=== PATIENT | female | born 1960 | race Caucasian/White ===

== ENCOUNTER → 2017-04-14 | Outpatient (CLI) | payer BC ==
[2017-04-14 16:55] LABS: Follicle Stimulating Hormone 37.4 mIU/mL
== END | disposition home or self-care (01) ==
LOC: LABWHC1 15:54
PROVIDERS: ATTEND Obstetrics & Gynecology
DX: R45.4 Irritability and anger (principal); R61 Generalized hyperhidrosis; R53.83 Other fatigue; N95.2 Postmenopausal atrophic vaginitis; E55.9 Vitamin D deficiency, unspecified; R41.3 Other amnesia; N95.1 Menopausal and female climacteric states
CPT/HCPCS: 36415; 82670; 83001; 84403

== ENCOUNTER → 2017-08-23 | Outpatient (CLI) | payer SELFPAY ==
--- NOTE | 2017-08-23 11:10 | MM ---
Reason for exam: clinical finding. Last mammogram was performed 1 year and 1 month ago. History: Patient is postmenopausal. Family history of breast cancer in mother at age 58. Retro-pectoral silicone gel implants in both breasts, 2014. Benign excisional biopsy of the right breast, 2005. Saline implants in both breasts, 1992. Taking progesterone for 6 months beginning at age 57. Indicated problem(s): non-bloody discharge in the left breast. Physical Findings: Nurse did not find any significant physical abnormalities on exam. MG 3D Diag Mammo Imp W/Cad MC Bilateral CC and MLO view(s) were taken. Prior study comparison: July 26, 2016, bilateral MG 3d screen mammo imp/cad. July 17, 2015, bilateral MG screening mammo implant/CAD. April 22, 2014, bilateral MG diagnostic mammo w CAD MC. The breast tissue is heterogeneously dense. This may lower the sensitivity of mammography. Finding: There are typically benign round calcifications in both breasts. There is no discrete abnormality. Intact subpectoral implants x 2. These results were verbally communicated with the patient and result sheet given to the patient on 08/23/17. ASSESSMENT: Incomplete: need additional imaging evaluation, BI-RAD 0 RECOMMENDATION: Ultrasound of the left breast. (subareolar due to nipple discharge)
--- NOTE | 2017-08-23 11:13 | USB ---
Reason for exam: additional evaluation requested from abnormal screening. History: Patient is postmenopausal. Family history of breast cancer in mother at age 58. Retro-pectoral silicone gel implants in both breasts, 2014. Benign excisional biopsy of the right breast, 2005. Saline implants in both breasts, 1992. Taking progesterone for 6 months beginning at age 57. US Breast Limited LT Left breast ultrasound demonstrates a 0.3 x 0.2 x 0.3cm oval lesion too small to characterize at 9 o'clock calcifications posterior shadow, a 0.4 x 0.3 x 0.2cm oval lesion too small to characterize at 10 o'clock and a 0.6 x 0.6 x 0.3cm oval, cystic lesion at the subareolar position. These results were verbally communicated with the patient and result sheet given to the patient on 08/23/17. ASSESSMENT: Probably benign, BI-RAD 3 RECOMMENDATION: Surgical consultation of the left breast. Manage on a clinical basis with regard to left nipple discharge. Ultrasound of the left breast in 6 months.
== END ==
LOC: RADMAMWWP 09:10
PROVIDERS: ATTEND Obstetrics & Gynecology
DX: N64.52 Nipple discharge (principal); R92.8 Other abnormal and inconclusive findings on diagnostic imaging of breast
CPT/HCPCS: 76642; G0204; G0279

== ENCOUNTER → 2017-09-02 | Outpatient (CLI) | payer BC ==
[2017-09-02 18:36] LABS: Non-African American GFR(MDRD) >60 (>60 ml/min/1.73 sqM)
--- NOTE | 2017-09-09 15:12 | BMR ---
EXAMINATION TYPE: MR breast BILAT wo/w con DATE OF EXAM: 09/02/2017 COMPARISON: 08/23/2017 HISTORY: Left nipple discharge. Family history is significant for a mother diagnosed with breast canc er at age 58. Patient is postmenopausal. Personal history of retropectoral silicone gel implants in b oth breasts placement 2014. Prior benign excisional biopsy in the right breast in 2005. TECHNIQUE: A series of fat and water weighted images in the long and short axis views of both breasts are obtained in conjunction with dynamic contrast MRI with subtraction technique. The patient was i njected with 6.5 mL intravenous Gadavist gadolinium contrast. Three-dimensional and additional post processing imaging is created on independent workstation and reviewed during official interpretation of this study. COMPARISON: Targeted left breast ultrasound and diagnostic bilateral 3-D mammogram dated 08/23/2017 FINDINGS: There is symmetric minimal background parenchymal enhancement and breasts are composed of heterogenou s fibroglandular tissue. Bilateral retropectoral silicone implants are present. Radial folds are seen bilaterally. No evidence of intracapsular or extracapsular rupture. Asymmetric left nipple and retroareolar enhancement is seen with washout kinetics. Although this enha ncement may be physiologic due to the rich blood supply of the nipple areolar complex neoplasm is pos sible. No suspicious areas of mass or nonmass enhancement are seen within the right breast. No internal mamm kyle, intramammary, or axillary lymphadenopathy is appreciated bilaterally. The previously seen too small to characterize 0.3 x 0.2 x 0.3 cm mass at the 9:00 position in the lef t breast as well as a 0.4 x 0.3 x 0.2 cm mass at the 10:00 position in the left breast in the subareo lar 0.6 x 0.6 x 0.3 cm cyst do not demonstrate suspicious enhancement. IMPRESSION: BI-RADS 2-No MRI evidence of malignancy. 1. Asymmetric left nipple enhancement and periareolar skin enhancement with no abnormal breast tissue enhancement. This finding is typically physiologic although the differential includes Paget's diseas e, skin infectious etiology or skin inflammatory etiology. There is no apparent skin thickening on MR . If there are skin changes punched biopsy should be considered. 2. No suspicious enhancement of the previously seen 0.3 cm mass and 0.6 cm cyst at the 9:00 and 10:00 positions respectively within the left breast. Six-month follow-up ultrasound remains a recommendati on for the 0.3 cm mass at the 10:00 position. 3. No suspicious mass or nonmass enhancement in the right breast. 4. No evidence of internal mammary, intramammary or axillary adenopathy bilaterally. 5. No evidence of intracapsular or extracapsular implant rupture.
== END | disposition home or self-care (01) ==
LOC: RADMRIMAIN 18:01
PROVIDERS: ATTEND Surgery
DX: N64.89 Other specified disorders of breast (principal); N64.52 Nipple discharge
CPT/HCPCS: 82565; 77059; 0159T; A9581

== ENCOUNTER → 2018-03-06 | Outpatient (CLI) | payer BC ==
--- NOTE | 2018-03-07 08:32 | USB ---
Reason for exam: follow-up at short interval from prior study. History: Patient is postmenopausal. Family history of breast cancer in mother at age 58. Retro-pectoral silicone gel implants in both breasts, 2014. Benign excisional biopsy of the right breast, 2005. Saline implants in both breasts, 1992. Taking progesterone for 6 months beginning at age 57. US Breast LT Left breast ultrasound includes all four quadrants, the retroareolar region and axilla. Finding demonstrates a 0.6 x 0.4 x 0.3cm mixed, hypoechoic lesion at 1 o'clock thought to be present on mammogram back to 2013 however 6 month follow up recommended as not cystic and not imaged previously with ultrasound, a 0.9 x 0.7 x 0.3cm cystic lesion at 1 o'clock, a 0.4 x 0.3 x 0.3cm mixed, hypoechoic lesion at 6 o'clock not previously sonographically imaged, 6 month follow up recommended, a 0.2 x 0.3 x 0.3cm calcification at 9 o'clock, a 0.4 x 0.3 x 0.2cm cystic lesion with septation at 10 o'clock and a 0.6 x 0.6 x 0.3cm cystic lesion at the posterior nipple. These results were verbally communicated with the patient and result sheet given to the patient on 03/06/18. ASSESSMENT: Probably benign, BI-RAD 3 RECOMMENDATION: Ultrasound of the left breast. (attention 1 o'clock and 6 o'clock positions) Due for mammogram at that time. Follow-up diagnostic mammogram of both breasts in 6 months. Back on schedule for August 2018.
== END | disposition home or self-care (01) ==
LOC: RADUSWWP 10:14
PROVIDERS: ATTEND Surgery
DX: R92.8 Other abnormal and inconclusive findings on diagnostic imaging of breast (principal)

== ENCOUNTER → 2018-09-05 | Outpatient (CLI) | payer BC ==
--- NOTE | 2018-09-05 12:17 | MM ---
Reason for exam: additional evaluation requested from prior study. Last mammogram was performed 1 year ago. History: Patient is postmenopausal. Family history of breast cancer in mother at age 58. Retro-pectoral silicone gel implants in both breasts, 2014. Benign excisional biopsy of the right breast, 2005. Saline implants in both breasts, 1992. Taking progesterone for 6 months beginning at age 57. Physical Findings: Nurse Summary:less than 1cm nodule in the left breast at 5 o'clock (nurse rm). MG 3D Diag Mammo Imp W/Cad MC Bilateral CC, MLO, and ID view(s) were taken. Prior study comparison: August 23, 2017, bilateral MG 3d diag mammo imp w/cad MC. July 26, 2016, bilateral MG 3d screen mammo imp/cad. The breast tissue is extremely dense which could obscure a lesion on mammography. Benign appearing bilateral calcifications. Bilateral intramammary lymph nodes. These results were verbally communicated with the patient and result sheet given to the patient on 09/05/18. ASSESSMENT: Benign, BI-RAD 2 RECOMMENDATION: Routine screening mammogram of both breasts in 1 year.
--- NOTE | 2018-09-05 12:48 | BD ---
EXAMINATION TYPE: Axial Bone Density DATE OF EXAM: 09/05/2018 COMPARISON: NONE CLINICAL HISTORY: Postmenopausal female. Osteoporosis screening. Height: 5 FT 4 1/2 IN Weight: 136 FRAX RISK QUESTIONS: History of Fracture in Adulthood: YES Secondary Osteoporosis: RISK FACTORS HISTORY OF: Family History of Osteoporosis: YES Active: YES Postmenopausal woman: AGE 51 MEDICATIONS: Additional Medications: ALTACE, Additional History: EXAM MEASUREMENTS: Bone mineral densitometry was performed using the [employer] System. Bone mineral density as measured about the Lumbar spine is: ----- L1-L4(G/cm2): 1.359 T Score Values are as follows: ----- L2: 1.2 ----- L3: 1.8 ----- L4: 1.7 ----- L1-L4: 1.5 BASELINE Bone mineral density about the R hip (g/cm2): 1.089 Bone mineral density about the L hip (g/cm2): 1.017 T Score values are as follows: -----R Neck: 0.4 -----L Neck: -0.2 -----R Total: 0.0 -----L Total: 0.0 BASELINE IMPRESSION: Normal (Values between +1 and -1 indicate normal bone mass). Consider repeating this study in 5 year s or sooner if there is some new clinical indication. NOTE: T-SCORE=SD OF THE YOUNG ADULT MEAN.
--- NOTE | 2018-09-05 13:09 | USB ---
Reason for exam: follow-up at short interval from prior study. History: Patient is postmenopausal. Family history of breast cancer in mother at age 58. Retro-pectoral silicone gel implants in both breasts, 2014. Benign excisional biopsy of the right breast, 2005. Saline implants in both breasts, 1992. Taking progesterone for 6 months beginning at age 57. US Breast LT Left complete breast ultrasound includes all four quadrants, the retroareolar region and axilla. Finding demonstrates a 0.3 x 0.1 x 0.4cm oval, cystic, benign lesion at 1 o'clock, a 0.8 x 0.3 x 0.6cm mixed lesion at 1 o'clock previously 0.6 x 0.3 x 0.4cm for which a biopsy is recommended, a 0.7 x 0.2 x 0.5cm possible cystic cluster, mixed lesion at 2 o'clock previously 0.9 x 0.3 x 0.7cm, a 0.6 x 0.2 x 0.4cm hypoechoic lesion at 2 o'clock, a 0.7 x 0.3 x 0.5cm mixed lesion at 2 o'clock, a 0.5 x 0.3 x 0.4cm possibly cystic cluster, mixed lesion at 6 o'clock, a0.3 x 0.2 x 0.4cm mixed lesion at 10 o'clock and a 0.5 x 0.3 x 0.6cm cystic benign lesion at the posterior nipple. These results were verbally communicated with the patient and result sheet given to the patient on 09/05/18. ASSESSMENT: Suspicious, BI-RAD 4 RECOMMENDATION: Ultrasound core biopsy of the left breast. (recommendation of similar masses to be made after biopsy of the 1 o'clock mass) Called with mammographic findings and has scheduled an appointment for the patient for 09/21/18 at 9:[address] Leach. Biopsy scheduled for 09/14/18 at 12:20. PRELIMINARY REPORT CALLED AND FAXED TO DR. LEACH ON 09/05/18.
== END | disposition home or self-care (01) ==
LOC: RADMAMWWP 08:00
PROVIDERS: ATTEND Surgery
DX: R92.8 Other abnormal and inconclusive findings on diagnostic imaging of breast (principal); Z78.0 Asymptomatic menopausal state
CPT/HCPCS: 77062; 77066; 77080

== ENCOUNTER → 2018-09-14 | Day surgery (SDC) | payer BC ==
[2018-09-14 12:14] VITALS: RESP 16; BMI 21.9
[2018-09-14 13:20] VITALS: BP 152/85; PULSE 76; TEMP 97.9
--- NOTE | 2018-09-14 13:55 | USB ---
EXAMINATION TYPE: US biopsy breast VAD LT DATE OF EXAM: 09/14/2018 CLINICAL HISTORY: R92.8 Abnormal mammogram. TECHNIQUE: Ultrasound guided core biopsy of left breast. COMPARISON: Ultrasound 09/05/2018 Maximal barrier technique is utilized. Ultrasound was used to sterile technique. The skin overlying the lesion at the 1:00 position of the left breast was localized with ultrasound and the overlying skin prepped and draped. Lidocaine used for local anesthesia and hydrodissection and a skin sara made with a scalpel. 2 passes with an 18-gauge needle were made into the level of the mass and core specimens obtained. Following the procedure hemostasis achieved. No immediate complication. Patient remained in stable condition. IMPRESSION: Status post ultrasound guided core biopsy of left breast lesion as described. Specimen submitted to pathology. This procedure performed by the undersigned. Follow-up left breast ultrasound recommended in 6 months. Pathology Results: Inadequate Specimen LEFT BREAST, NEEDLE CORE BIOPSIES: Dense fibrous and adipose tissue with prominent vessels suggestive of scar. Non-atypical epithelial cells consistent with duct epithelium. Suboptimal for diagnosis due to low cellularity. Recommendation Given the location, consider 3 month follow up ultrasound as alternative to rebiopsy or open biopsy. EDDIED
== END ==
LOC: RADUSWWP 11:18
PROVIDERS: ATTEND Surgery
DX: R92.8 Other abnormal and inconclusive findings on diagnostic imaging of breast (principal)
CPT/HCPCS: 88305; 19083; J2001

== ENCOUNTER → 2018-09-19 | Outpatient (CLI) | payer BC ==
[2018-09-19 08:41] LABS: Basophils % (A) 0 %; Eosinophils # (A) 0.1 k/uL (0-0.7); Eosinophils % (A) 3 %; HCT 41.9 % (34.0-46.0); HGB 13.6 gm/dL (11.4-16.0); Lymphocytes % (A) 27 %; MCH 27.5 pg (25.0-35.0); MCHC 32.5 g/dL (31.0-37.0); MCV 84.6 fL (80.0-100.0); Mean Platelet Volume 6.5; Monocytes # (A) 0.2 k/uL (0-1.0); Monocytes % (A) 5 %; Neutrophils # (A) 2.3 k/uL (1.3-7.7); Neutrophils % (A) 64 %; Platelet Count 292 k/uL (150-450); RBC 4.95 m/uL (3.80-5.40); RDW 12.6 % (11.5-15.5); WBC 3.7 k/uL (3.8-10.6)
[2018-09-19 18:18] LABS: Albumin 4.6 g/dL (3.80-4.90); Albumin/Globulin Ratio 2.3 (1.20-2.10); Anion Gap 9.7 mmol/L (4.00-12.00); Calcium 9.4 mg/dL (8.7-10.3); Carbon Dioxide 25.3 mmol/L (21.6-31.8); LDL Cholesterol,Calculated 139.8 mg/dL (0.0-131.0); Potassium 4.8 mmol/L (3.5-5.5); Total Bilirubin 0.6 mg/dL (0.3-1.2); Total Protein 6.6 g/dL (6.2-8.2); VLDL Calculation 22.2 mg/dL (5.00-40.00)
== END | disposition home or self-care (01) ==
LOC: LABWHC1 07:34
PROVIDERS: ATTEND Family Medicine
DX: I10 Essential (primary) hypertension (principal); Z11.59 Encounter for screening for other viral diseases
CPT/HCPCS: 36415; 80053; 80061; 84443; 85025; 86803

== ENCOUNTER 2018-11-01 11:30 | Day surgery (SDC) | payer BC ==
[2018-10-27 15:08] VITALS: BMI 21.7
[~2018-11-01 11:30] MED LIST: DEXAMETHASONE SOD PHOSPHATE 10 MG/ML 1 ML VIAL IV ONE; HYDROmorphone 0.5 MG/0.5 ML SYRINGE IVP PRN; LACTATED RINGERS 1,000 ML IV SCH; LIDOCAINE 1% 20 ML VIAL (10MG/ML) FOR IV START INTRADERMA PRN; ONDANSETRON 4 MG/2 ML VIAL IVP ONE; SCOPOLAMINE 1.5MG/72HR PATCH TRANSDERM ONE
[2018-11-01 11:48] VITALS: RESP 16; TEMP 98.6
[2018-11-01] MEDS ORDERED: LIDOCAINE 1% INJ 10MG/ML (20 ML MDV) ONE (12:26)
[2018-11-01] MEDS ORDERED: PROPOFOL 10 MG/ML 20 ML VIAL IV ONE (12:26)
--- NOTE | 2018-11-01 12:55 | P.PCN ---
Date of Procedure: 11/01/18 Procedure(s) Performed: PREOPERATIVE DIAGNOSIS: Colon cancer screening POSTOPERATIVE DIAGNOSIS: Small sigmoid polyp, diverticulosis, tortuous colon PROCEDURE: Colonoscopy with snare polypectomy ANESTHESIA: MAC SURGEON: Carlos Leach M.D. SPECIMENS: Sigmoid polyp ENDOSCOPIC PROCEDURE: The patient was placed on the endoscopy table in the left decubitus position. The Olympus colonoscope was inserted into the anus and passed under direct visualization to the base of the cecum. The appendiceal orifice was visualized. From that point the scope was slowly withdrawn inspecting all surfaces carefully. There were no neoplastic inflammatory or polypoid lesions throughout the cecum, ascending, transverse, and descending colon. In the sigmoid there was a small polyp that was removed using the snare with cautery technique. The remainder of the sigmoid and rectum appeared normal. There was significant tortuosity throughout the colon. There was mild ascites diverticulosis. Digital rectal examination was normal. The patient was taken to the recovery room in stable condition per anesthesia guidelines. RECOMMENDATIONS: Await biopsy results. Anticipate follow-up colonoscopy 5-10 years.
[2018-11-01 13:25] VITALS: BP 134/85; PULSE 60
== END 2018-11-01 13:54 | disposition home or self-care (01) ==
LOC: ORWHC2ENDO 11:30
PROVIDERS: ATTEND Surgery
DX: Z12.11 Encounter for screening for malignant neoplasm of colon (principal); K63.5 Polyp of colon; K57.30 Diverticulosis of large intestine without perforation or abscess without bleeding; Q43.8 Other specified congenital malformations of intestine; I10 Essential (primary) hypertension; Z79.899 Other long term (current) drug therapy; Z88.2 Allergy status to sulfonamides
CPT/HCPCS: 88305; 45385; J2001; J2704

== ENCOUNTER 2018-11-12 07:59 | Inpatient (IN) | payer BC ==
[2018-11-12] MEDS ORDERED: SODIUM CHLORIDE 0.9% 2,000 ML IV STA (08:05)
[2018-11-12] MEDS ORDERED: ONDANSETRON 4 MG/2 ML VIAL IVP STA (08:05)
[2018-11-12] MEDS ORDERED: KETOROLAC 30 MG/ML 1 ML VIAL IVP STA (08:05)
[2018-11-12] MEDS ORDERED: ACETAMINOPHEN TAB 500 MG TAB PO STA (08:12)
[2018-11-12] MEDS ORDERED: cefTRIAXone 2,000 MG in SODIUM CHLORIDE 0.9% 100 ML IVPB STA (08:15)
--- NOTE | 2018-11-12 08:25 | ED ---
Abdominal Pain HPI - General Chief Complaint: Abdominal Pain Stated Complaint: Fever, Abd Pain Time Seen by Provider: 11/12/18 08:04 Source: patient, RN notes reviewed, old records reviewed Mode of arrival: ambulatory Limitations: no limitations - History of Present Illness Initial Comments: Patient is a 58-year-old female who presents emergency room today with chief complaint of bilateral flank pain times one day. Patient reports that she was diagnosed with a urinary tract infection yesterday in urgent care clinic. She was started on Macrobid. She's had 2 doses of the antibiotic. Patient reports that she has had a fever 103 today. Patient states that she's had a history of left-sided hydronephrosis. Which had have corrective surgery. She states that she follows with Dr. Hernandez. Patient denies any vomiting but does feel nauseated. She has had normal stools. She had Tylenol last night. - Related Data Home Medications Medication Instructions Recorded Confirmed Ramipril [Altace] 20 mg PO DAILY 10/27/18 11/12/18 Aspirin EC [Ecotrin] 650 mg PO DAILY PRN 11/12/18 11/12/18 Nitrofurantoin Macrocrystal 100 mg PO Q12H 11/12/18 11/12/18 [Macrodantin] Allergies Allergy/AdvReac Type Severity Reaction Status Date / Time Sulfa (Sulfonamide Allergy Rash/Hives Verified 11/12/18 08:32 Antibiotics) Review of Systems ROS Statement: Those systems with pertinent positive or pertinent negative responses have been documented in the HPI. ROS Other: All systems not noted in ROS Statement are negative. 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 History of Any Multi-Drug Resistant Organisms: None Reported Past Surgical History: Tubal Ligation Additional Past Surgical History / Comment(s): REPAIR LEFT BLOCKED URETER, colonoscopy Past Anesthesia/Blood Transfusion Reactions: Postoperative Nausea & Vomiting ( PONV) Past Psychological History: No Psychological Hx Reported Smoking Status: Never smoker Past Alcohol Use History: Occasional Past Drug Use History: None Reported - Past Family History Mother Family Medical History: Cancer Father Family Medical History: AFIB General Exam - General Exam Comments Initial Comments: 4-year-old female. Alert and oriented. Patient appears in no acute distress. Limitations: no limitations General appearance: alert, in no apparent distress Head exam: Present: atraumatic, normocephalic, normal inspection Eye exam: Present: normal appearance, PERRL, EOMI. Absent: scleral icterus, conjunctival injection, periorbital swelling ENT exam: Present: normal exam, mucous membranes moist Neck exam: Present: normal inspection. Absent: tenderness, meningismus, lymphadenopathy Respiratory exam: Present: normal lung sounds bilaterally. Absent: respiratory distress, wheezes, rales, rhonchi, stridor Cardiovascular Exam: Present: regular rate, normal rhythm, normal heart sounds. Absent: systolic murmur, diastolic murmur, rubs, gallop, clicks GI/Abdominal exam: Present: soft, tenderness (Bilateral CVA tenderness), normal bowel sounds. Absent: distended, guarding, rebound, rigid Extremities exam: Present: normal inspection, full ROM, normal capillary refill. Absent: tenderness, pedal edema, joint swelling, calf tenderness Back exam: Present: normal inspection Neurological exam: Present: alert, oriented X3, CN II-XII intact Psychiatric exam: Present: normal affect, normal mood Skin exam: Present: warm, dry, intact, normal color. Absent: rash Course Vital Signs 11/12/18 07:59 Temperature 99.8 F H Pulse Rate 116 H Respiratory 16 Rate Blood Pressure 145/86 O2 Sat by Pulse 95 Oximetry - Reevaluation(s) Reevaluation #1: 11/12/18 11:39 Patient is reevaluated this time. Blood pressure was taken was 90/40. She is guarding received 2 L of fluid. She does have a history of high blood pressure and has not taken her blood pressure medication. Medical Decision Making - Medical Decision Making Patient is a 4-year-old female who presents today with she went to fevers, left- sided flank pain. Patient reports she went to urgent care yesterday and was sinus with a urinary tract infection. She started one day of Macrobid. She recommends from today complains of fevers and fatigue. She states she had fever 103 at home. Temperature was 99.7 here. She was given Tylenol, 2 L of fluids. She started 2 g of Rocephin. She was given Toradol for pain. She had some left-sided CVA tenderness. Patient does report a history of hydronephrosis over the left kidney after she had a blockage. She had surgery by Dr. Kasey larose. Years ago for this. Patient was reevaluated. Blood pressure was low at 90s over 56. Patient has had history of hypertension but did not take her blood pressure meds today. This was after 2 L bolus. I discussed case with Dr. piedra, whom discussed with Dr. Chavarria.. Her concern the Patient may have a worsening infection causing the low blood pressure. Patient will be admitted at this time for continued monitoring. - Lab Data Result diagrams: 11/12/18 08:40 11/12/18 08:40 Lab Results 11/12/18 11/12/18 11/12/18 Range/Units 08:40 08:40 08:40 WBC 5.1 (3.8-10.6) k/uL RBC 5.14 (3.80-5.40) m/uL Hgb 14.5 (11.4-16.0) gm/dL Hct 43.0 (34.0-46.0) % MCV 83.5 (80.0-100.0) fL MCH 28.3 (25.0-35.0) pg MCHC 33.8 (31.0-37.0) g/dL RDW 13.3 (11.5-15.5) % Plt Count 183 (150-450) k/uL Neutrophils % 94 % Lymphocytes % 2 % Monocytes % 3 % Eosinophils % 1 % Basophils % 0 % Neutrophils # 4.8 (1.3-7.7) k/uL Lymphocytes # 0.1 L (1.0-4.8) k/uL Monocytes # 0.1 (0-1.0) k/uL Eosinophils # 0.1 (0-0.7) k/uL Basophils # 0.0 (0-0.2) k/uL PT (9.0-12.0) sec INR (<1.2) APTT (22.0-30.0) sec Sodium 139 (137-145) mmol/L Potassium 3.9 (3.5-5.1) mmol/L Chloride 106 (98-107) mmol/L Carbon Dioxide 26 (22-30) mmol/L Anion Gap 7 mmol/L BUN 19 H (7-17) mg/dL Creatinine 1.13 H (0.52-1.04) mg/dL Est GFR (CKD-EPI)AfAm 61 (>60 ml/min/1.73 sqM) Est GFR (CKD-EPI)NonAf 53 (>60 ml/min/1.73 sqM) Glucose 105 H (74-99) mg/dL Plasma Lactic Acid Andre 1.2 (0.7-2.0) mmol/L Calcium 9.4 (8.4-10.2) mg/dL Total Bilirubin 0.4 (0.2-1.3) mg/dL AST 27 (14-36) U/L ALT 31 (9-52) U/L Alkaline Phosphatase 48 (38-126) U/L Total Protein 7.1 (6.3-8.2) g/dL Albumin 4.3 (3.5-5.0) g/dL Amylase 68 (30-110) U/L Lipase 185 (23-300) U/L Urine Color Urine Appearance (Clear) Urine pH (5.0-8.0) Ur Specific [place] (1.001-1.035) Urine Protein (Negative) Urine Glucose (UA) (Negative) Urine Ketones (Negative) Urine Blood (Negative) Urine Nitrite (Negative) Urine Bilirubin (Negative) Urine Urobilinogen (<2.0) mg/dL Ur Leukocyte Esterase (Negative) Urine RBC (0-5) /hpf Urine WBC (0-5) /hpf Ur Squamous Epith Cells (0-4) /hpf Urine Bacteria (None) /hpf Urine Mucus (None) /hpf 11/12/18 11/12/18 Range/Units 08:40 10:11 WBC (3.8-10.6) k/uL RBC (3.80-5.40) m/uL Hgb (11.4-16.0) gm/dL Hct (34.0-46.0) % MCV (80.0-100.0) fL MCH (25.0-35.0) pg MCHC (31.0-37.0) g/dL RDW (11.5-15.5) % Plt Count (150-450) k/uL Neutrophils % % Lymphocytes % % Monocytes % % Eosinophils % % Basophils % % Neutrophils # (1.3-7.7) k/uL Lymphocytes # (1.0-4.8) k/uL Monocytes # (0-1.0) k/uL Eosinophils # (0-0.7) k/uL Basophils # (0-0.2) k/uL PT 10.2 (9.0-12.0) sec INR 0.9 (<1.2) APTT 23.6 (22.0-30.0) sec Sodium (137-145) mmol/L Potassium (3.5-5.1) mmol/L Chloride (98-107) mmol/L Carbon Dioxide (22-30) mmol/L Anion Gap mmol/L BUN (7-17) mg/dL Creatinine (0.52-1.04) mg/dL Est GFR (CKD-EPI)AfAm (>60 ml/min/1.73 sqM) Est GFR (CKD-EPI)NonAf (>60 ml/min/1.73 sqM) Glucose (74-99) mg/dL Plasma Lactic Acid Andre (0.7-2.0) mmol/L Calcium (8.4-10.2) mg/dL Total Bilirubin (0.2-1.3) mg/dL AST (14-36) U/L ALT (9-52) U/L Alkaline Phosphatase (38-126) U/L Total Protein (6.3-8.2) g/dL Albumin (3.5-5.0) g/dL Amylase (30-110) U/L Lipase (23-300) U/L Urine Color Yellow Urine Appearance Clear (Clear) Urine pH 5.5 (5.0-8.0) Ur Specific [place] 1.012 (1.001-1.035) Urine Protein Trace H (Negative) Urine Glucose (UA) Negative (Negative) Urine Ketones Trace H (Negative) Urine Blood Trace H (Negative) Urine Nitrite Negative (Negative) Urine Bilirubin Negative (Negative) Urine Urobilinogen <2.0 (<2.0) mg/dL Ur Leukocyte Esterase Small H (Negative) Urine RBC 3 (0-5) /hpf Urine WBC 4 (0-5) /hpf Ur Squamous Epith Cells 3 (0-4) /hpf Urine Bacteria Rare H (None) /hpf Urine Mucus Rare H (None) /hpf - Radiology Data Radiology results: report reviewed Patient states ultrasound reveals a bladder showed left-sided hydronephrosis. Disposition Clinical Impression: Acute pyelonephritis Disposition: ADMITTED IP TO THIS HOSP Condition: Stable Is patient prescribed a controlled substance at d/c from ED?: No Referrals: Paula Ramirez MD [Primary Care Provider] - 1-2 days Time of Disposition: 12:18
[2018-11-12] MEDS: SODIUM CHLORIDE 0.9% 1,000 ML IV STA ×2 (08:27→17:52)
[2018-11-12 09:26] LABS: INR 0.9 (<1.2); Partial Thromboplastin Time 23.6 sec (22.0-30.0); Prothrombin Time 10.2 sec (9.0-12.0)
--- NOTE | 2018-11-12 09:34 | US ---
EXAMINATION TYPE: US kidneys/renal and bladder DATE OF EXAM: 11/12/2018 COMPARISON: CT CLINICAL HISTORY: Pain. Pt states bilat flank pain, H/O renal stones, recent UTI EXAM MEASUREMENTS: Right Kidney: 10.8 x 4.8 x 4.8 cm Left Kidney: 10.9 x 4.6 x 4.8 cm Right Kidney: wnl Left Kidney: Dilated renal pelvis= 3.7 cm with mild hydro Bladder: wnl Bilateral Jets seen: No There is no evidence for hydronephrosis at this point in time. No nephrolithiasis is seen. No ene s are identified. The urinary bladder is anechoic. Bilateral ureteral jets are seen. IMPRESSION: Left-sided hydronephrosis.
[2018-11-12 09:35] LABS: Basophils % (A) 0 %; Eosinophils # (A) 0.1 k/uL (0-0.7); Eosinophils % (A) 1 %; HGB 14.5 gm/dL (11.4-16.0); Lymphocytes # (A) 0.1 k/uL (1.0-4.8); Lymphocytes % (A) 2 %; MCH 28.3 pg (25.0-35.0); MCHC 33.8 g/dL (31.0-37.0); MCV 83.5 fL (80.0-100.0); Mean Platelet Volume 6.9; Monocytes # (A) 0.1 k/uL (0-1.0); Monocytes % (A) 3 %; Neutrophils # (A) 4.8 k/uL (1.3-7.7); Neutrophils % (A) 94 %; Platelet Count 183 k/uL (150-450); RBC 5.14 m/uL (3.80-5.40); RDW 13.3 % (11.5-15.5); WBC 5.1 k/uL (3.8-10.6)
[2018-11-12 09:39] LABS: Albumin 4.3 g/dL (3.5-5.0); Calcium 9.4 mg/dL (8.4-10.2); Potassium 3.9 mmol/L (3.5-5.1); Total Bilirubin 0.4 mg/dL (0.2-1.3); Total Protein 7.1 g/dL (6.3-8.2)
[2018-11-12 10:41] LABS: Appearance,Urine Clear (Clear); Bacteria,Urine Rare /hpf; Bilirubin,Urine Negative (Negative); Blood,Urine Trace (Negative); Color,Urine Yellow; Glucose,Urine (UA) Negative (Negative); Ketones,Urine Trace (Negative); Leukocyte Esterase,Urine Small (Negative); Mucus,Urine Rare /hpf; Nitrite,Urine Negative (Negative); PH, Urine 5.5 (5.0-8.0); Protein,Urine Trace (Negative); RBC,Urine 3 /hpf (0-5); Specific Gravity,Urine 1.012 (1.001-1.035); Squamous Epithelial Cell,Urine 3 /hpf (0-4); Urobilinogen,Urine <2.0 mg/dL (<2.0)
[2018-11-12] MEDS ORDERED: IBUPROFEN 400 MG TAB PO PRN (12:20)
[2018-11-12] MEDS ORDERED: KETOROLAC 30 MG/ML 1 ML VIAL IVP PRN (12:20)
[2018-11-12] MEDS ORDERED: oxyCODONE-APAP 5-325MG 1 EACH TAB PO PRN (12:20)
[2018-11-12] MEDS ORDERED: ONDANSETRON 4 MG/2 ML VIAL IVP PRN (12:20)
[2018-11-12] MEDS ORDERED: NALOXONE 0.4 MG/ML 1 ML VIAL IV PRN (12:20)
[2018-11-12 17:55] VITALS: BMI 21.9
[2018-11-12] MEDS ORDERED: ASPIRIN 325 MG TAB PO PRN (18:03)
[2018-11-12] MEDS ORDERED: TEMAZEPAM 15 MG CAP PO PRN (18:03)
[2018-11-12] MEDS ORDERED: ALPRAZolam 0.25 MG TAB PO PRN (18:03)
[2018-11-12] MEDS: SODIUM CHLORIDE 0.9% 1,000 ML IV SCH (18:24)
[2018-11-12] MEDS: ACETAMINOPHEN TAB 325 MG TAB PO PRN (22:20)
[2018-11-12] MEDS: HEPARIN SODIUM,PORCINE 5,000 UNIT/ML 1 ML VIAL SQ SCH (22:20)
[2018-11-13 07:14] LABS: Basophils % (A) 0 %; Eosinophils # (A) 0.1 k/uL (0-0.7); Eosinophils % (A) 4 %; HCT 34.4 % (34.0-46.0); Lymphocytes # (A) 0.4 k/uL (1.0-4.8); Lymphocytes % (A) 19 %; MCH 28.7 pg (25.0-35.0); MCHC 33.2 g/dL (31.0-37.0); MCV 86.3 fL (80.0-100.0); Mean Platelet Volume 6.9; Monocytes # (A) 0.1 k/uL (0-1.0); Monocytes % (A) 5 %; Neutrophils # (A) 1.3 k/uL (1.3-7.7); Neutrophils % (A) 68 %; Platelet Count 150 k/uL (150-450); RBC 3.99 m/uL (3.80-5.40); RDW 13.4 % (11.5-15.5); WBC 1.9 k/uL (3.8-10.6)
[2018-11-13 07:23] LABS: HGB 11.4 gm/dL (11.4-16.0)
[2018-11-13 07:42] LABS: Calcium 8.3 mg/dL (8.4-10.2); Potassium 4.6 mmol/L (3.5-5.1)
[2018-11-13] MEDS: PANTOPRAZOLE 40 MG/10 ML VIAL IV SCH (08:17)
[2018-11-13] MEDS: HEPARIN SODIUM,PORCINE 5,000 UNIT/ML 1 ML VIAL SQ SCH ×2 (08:20→20:06)
[2018-11-13] MEDS: cefTRIAXone 2,000 MG in SODIUM CHLORIDE 0.9% 100 ML IVPB SCH ×2 (08:21→20:06)
[2018-11-13] MEDS: LISINOPRIL 20 MG TAB PO SCH (08:22)
--- NOTE | 2018-11-13 08:31 | HP ---
HISTORY AND PHYSICAL DATE OF SERVICE: 11/12/2018 CHIEF COMPLAINT: Fever and abdominal pain. HISTORY OF THE PRESENT ILLNESS: This 58-year-old woman with a past medical history of multiple medical problems including hypertension, history of tubal ligation, history of left blocked ureter repair, history of multiple episodes of pyelonephritis, being followed by Dr. Ramirez in the outpatient setting, was complaining of chief complaints of bilateral flank pain and fever. The patient was diagnosed with UTI in the Urgent [facility] Center. The patient also had some night sweats and significant sweating and the patient was started on Macrobid. Because of lack of improvement, the patient came to [facility] and was admitted for further evaluation and treatment. White count is 5.1. The lactic acid is 1.2. UA was noted. There is no history any headache, loss of consciousness, seizures at this time. PAST MEDICAL HISTORY: Hypertension, history of tubal ligation, history of blocked ureter. Multiple pyelonephritis. MEDICATIONS: 1. Altace 20 mg p.o. daily. 2. Nitrofurantoin 100 mg p.o. b.i.d. 3. Ecotrin 650 mg b.i.d. p.r.n. ALLERGIES: SULFA. FAMILY HISTORY: Family history of cancer in the family. SOCIAL HISTORY: No history of smoking. Occasional alcohol intake. REVIEW OF SYSTEMS: ENT: No diminished hearing or vision. CARDIOVASCULAR SYSTEM: As mentioned earlier. RESPIRATORY: As mentioned earlier. GI no nausea or vomiting. As mentioned earlier. CENTRAL NERVOUS SYSTEM: No numbness or weakness. ALLERGY/IMMUNOLOGY: No asthma or hayfever. MUSCULOSKELETAL as mentioned earlier. HEMATOLOGY/ONCOLOGY: No history of anemia. ENDOCRINE: No history of diabetes or hypothyroidism. CONSTITUTIONAL: As mentioned earlier. Dermatology: Negative. Rheumatology: Negative. Psychiatry: As mentioned earlier. PHYSICAL EXAM: GENERAL: Patient is alert, oriented x3. VITAL SIGNS: Pulse is 81, blood pressure 108/60. Respirations 16, temperature 99.4, pulse ox 98% on room air. HEENT: Conjunctivae normal. Oral mucosa moist. NECK is no jugular venous distention. No carotid bruit. No lymph node enlargement. CARDIOVASCULAR SYSTEM: S1, S2 muffled. RESPIRATORY SYSTEM: Breath sounds diminished at the bases. No rhonchi. No crackles. ABDOMEN: Soft, nontender. No mass palpable. Mild diffuse discomfort on palpation. No guarding. No rigidity. LEGS: No edema. No swelling. NERVOUS SYSTEM: Higher functions as mentioned earlier. Moves all 4 limbs. No focal motor or sensory deficits. LYMPHATICS: No lymph nodes palpable in the neck, axillae or groin. SKIN: No ulcer, rash or bleeding. LABS: WBC 5.8, hemoglobin 14.5, creatinine is 1.13, UA noted. ASSESSMENT: 1. Possible acute pyelonephritis with sepsis. 2. Increased creatinine with possible mild acute renal failure. 3. History of hypertension. 4. History of tubal ligation. 5. History of repair of left blocked ureter. RECOMMENDATIONS AND DISCUSSION: In this 58-year-old woman who presented with multiple complex medical issues, we will monitor the patient closely, continue the current medications, management and symptomatic treatment. We will initiate broad-spectrum IV antibiotics, infectious disease evaluation, ultrasound of the bladder. Resume the home medications. Guarded prognosis. We will continue to monitor. Prognosis guarded. Further recommendations to follow. A copy of dictation being forwarded to Dr. Ramirez who is the primary physician. MMODL / IJN: [id number] /
[2018-11-13] MEDS: SODIUM CHLORIDE 0.9% 1,000 ML IV SCH (12:02)
--- NOTE | 2018-11-13 18:01 | P.CONS ---
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 Her has had difficulties related to the tendon rupture and has had multiple repairs and ongoing complications. She relates that her workday was extremely busy a few days ago and she believes in the 12 hour shift she did not even go to the bathroom. She denied eater drink much fluids throughout that time. Within 48 hours she started to feel like she had a urinary tract infection associated with some urgency burning and bilateral flank discomfort. She did go to the walk-in clinic and urinalysis was markedly abnormal and was placed on Macrobid. Despite this she then started to develop fevers up to 103 associated with chills and rigor. Tylenol succeeded in reducing the fever. However the fever then reoccurred and she remained very symptomatic and her brought her to the emergency center where she had low-grade fever but hypotension. As a she's been admitted to hospital and infectious diseases consultation was requested. Review of Systems 58-year-old woman who had fever chills malaise HEENT:Denies headache or acute visual change. Denies sinus or mouth discomforts. Denies neck stiffness or pain. Denies significant oral cavity pain. Denies difficulty on swallowing. Lungs: Denies significant shortness of breath, cough, sputum production, or hemoptysis. Cardiovascular: Denies significant shortness of breath, chest pain, chest wall pain, orthopnea, dyspnea on exertion, syncope Gastrointestinal:Denies nausea, vomiting, diarrhea, constipation, hematemesis, melena, hematochezia. No no significant change of bowel habit noticed. Musculoskeletal: denies significant myalgias or arthralgias. No new joint swelling. Denies new back pain. Skin: Denies new rash or lesions. No new ulcers or wounds are related.. Neuro: Denies headache or visual change. Denies any new onset weakness or difficulty with ambulation. Denies falls or seizures. Psychiatric:Denies anxiety or depression. Endocrine: Denies significant fatigue, denies significant weight loss or weight gain. 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 History of Any Multi-Drug Resistant Organisms: None Reported Past Surgical History: Tubal Ligation Additional Past Surgical History / Comment(s): REPAIR LEFT BLOCKED URETER, colonoscopy Past Anesthesia/Blood Transfusion Reactions: Postoperative Nausea & Vomiting ( PONV) Past Psychological History: No Psychological Hx Reported Additional Psychological History / Comment(s): . Works as an RN in obstetrics. Nonsmoker. No recent travel. No animals history related Smoking Status: Never smoker Past Alcohol Use History: Occasional Past Drug Use History: None Reported - Past Family History Mother Family Medical History: Cancer Father Family Medical History: AFIB Medications and Allergies Home Medications and Allergies Comment(s): Current Medications Acetaminophen (Tylenol Tab) 650 mg PO Q6HR PRN PRN Reason: Mild Pain or Fever > 100.5 Last Admin: 11/12/18 22:20 Dose: 650 mg Alprazolam (Xanax) 0.25 mg PO TID PRN PRN Reason: Anxiety Aspirin (Aspirin) 650 mg PO DAILY PRN PRN Reason: Mild Pain Heparin Sodium (Porcine) (Heparin) 5,000 unit SQ Q12HR [facility] Last Admin: 11/13/18 08:20 Dose: 5,000 unit Sodium Chloride (Saline 0.9%) 1,000 mls @ 20 mls/hr IV .Q24H [facility] Last Admin: 11/13/18 12:02 Dose: Not Given Ceftriaxone Sodium 2,000 mg/ (Sodium Chloride) 100 mls @ 100 mls/hr IVPB Q12HR [facility] Last Admin: 11/13/18 08:21 Dose: 100 mls/hr Ibuprofen (Motrin) 400 mg PO Q6HR PRN PRN Reason: Mild Pain or Fever > 100.5 Ketorolac Tromethamine (Toradol) 30 mg IVP Q6HR PRN PRN Reason: Moderate Pain Stop: 11/17/18 12:21 Lisinopril (Zestril) 80 mg PO DAILY [facility] Last Admin: 11/13/18 08:22 Dose: 80 mg Naloxone HCl (Narcan) 0.2 mg IV Q2M PRN PRN Reason: Opioid Reversal Ondansetron HCl (Zofran) 4 mg IVP Q8HR PRN PRN Reason: Nausea And Vomiting Oxycodone/Acetaminophen (Percocet 5-325) 1 each PO Q4HR PRN PRN Reason: Severe Pain Pantoprazole Sodium (Protonix) 40 mg IV DAILY [facility] Last Admin: 11/13/18 08:17 Dose: 40 mg Temazepam (Restoril) 15 mg PO HS PRN PRN Reason: Insomnia Last Admin: 11/12/18 22:21 Dose: 15 mg Home Medications Medication Instructions Recorded Confirmed Type Ramipril [Altace] 20 mg PO DAILY 10/27/18 11/12/18 History Aspirin EC [Ecotrin] 650 mg PO DAILY PRN 11/12/18 11/12/18 History Nitrofurantoin Macrocrystal 100 mg PO Q12H 11/12/18 11/12/18 History [Macrodantin] Allergies Allergy/AdvReac Type Severity Reaction Status Date / Time Sulfa (Sulfonamide Allergy Rash/Hives Verified 11/12/18 17:55 Antibiotics) Physical Exam Vitals: Vital Signs Temp Pulse Resp BP Pulse Ox 11/13/18 15:00 98.8 F 71 12 123/73 98 11/13/18 07:46 97.9 F 58 L 20 116/75 98 11/13/18 02:13 97.5 F L 66 16 109/64 94 L 11/12/18 23:00 99.5 F 81 16 108/68 93 L 11/12/18 19:30 99.8 F H 71 16 115/66 98 11/12/18 17:49 98.7 F 70 16 116/67 97 Intake and Output 11/13/18 11/13/18 11/13/18 06:59 14:59 22:59 Intake Total 800 640 Balance 800 640 Intake: Intake, IV Titration 800 640 Amount Sodium Chloride 0.9% 1, 600 000 ml @ 100 mls/hr IV . Q10H [facility] Rx#:[id number] Sodium Chloride 0.9% 1, 800 40 000 ml @ 20 mls/hr IV . Q24H [facility] Rx#:[id number] Other: # Voids 3 Fever 103.5 at home Patient likely recently broke a fever and that she is somewhat sweaty HEENT: Anicteric conjunctiva are pink and moist nasal mucosa grossly intact without significant lesions, there is no thrush. Neck: The neck is supple without significant lymphadenopathy or thyromegaly. Lungs: Good bilateral air entry without significant crackles or wheezing. There is no significant bronchial sounds. There is no egophony or dullness. Heart: Regular rate and rhythm with an audible S1-S2, no S3 no S4. There is no significant murmur click or rub, PMI was nondisplaced. Abdomen: Positive bowel sounds soft and nontender without palpable masses or organomegaly. There was no guarding or rebound. Minimal bilateral flank pain Extremities: The upper extremities have excellent pulses they are symmetric, no significant petechiae or telangiectasia. No splinter hemorrhages were noted. The lower extremities are free from significant edema. The peripheral pulses were 2+ and symmetric. Neuro: Awake alert oriented to person place and time. There are no acute new gross focal sensory motor deficits. There is mild suprapubic tenderness Results CBC & Chem 7: 11/13/18 06:21 11/13/18 06:21 Labs: Abnormal Lab Results - Last 24 Hours (Table) 11/13/18 11/13/18 Range/Units 06:21 06:21 WBC 1.9 L (3.8-10.6) k/uL Lymphocytes # 0.4 L (1.0-4.8) k/uL Chloride 116 H (98-107) mmol/L Calcium 8.3 L (8.4-10.2) mg/dL Microbiology - Last 24 Hours (Table) 11/12/18 08:40 Blood Culture - Preliminary Blood No Growth after 24 hours 11/12/18 10:11 Urine Culture - Final Urine,Voided Laboratory Results WBC 1.9 k/uL (3.8-10.6) L 11/13/18 06:21 RBC 3.99 m/uL (3.80-5.40) 11/13/18 06:21 Hgb 11.4 gm/dL (11.4-16.0) D 11/13/18 06:21 Hct 34.4 % (34.0-46.0) 11/13/18 06:21 MCV 86.3 fL (80.0-100.0) 11/13/18 06:21 MCH 28.7 pg (25.0-35.0) 11/13/18 06:21 MCHC 33.2 g/dL (31.0-37.0) 11/13/18 06:21 RDW 13.4 % (11.5-15.5) 11/13/18 06:21 Plt Count 150 k/uL (150-450) 11/13/18 06:21 Neutrophils % 68 % 11/13/18 06:21 Lymphocytes % 19 % 11/13/18 06:21 Monocytes % 5 % 11/13/18 06:21 Eosinophils % 4 % 11/13/18 06:21 Basophils % 0 % 11/13/18 06:21 Neutrophils # 1.3 k/uL (1.3-7.7) 11/13/18 06:21 Lymphocytes # 0.4 k/uL (1.0-4.8) L 11/13/18 06:21 Monocytes # 0.1 k/uL (0-1.0) 11/13/18 06:21 Eosinophils # 0.1 k/uL (0-0.7) 11/13/18 06:21 Basophils # 0.0 k/uL (0-0.2) 11/13/18 06:21 PT 10.2 sec (9.0-12.0) 11/12/18 08:40 INR 0.9 (<1.2) 11/12/18 08:40 APTT 23.6 sec (22.0-30.0) 11/12/18 08:40 Sodium 141 mmol/L (137-145) 11/13/18 06:21 Potassium 4.6 mmol/L (3.5-5.1) 11/13/18 06:21 Chloride 116 mmol/L (98-107) H 11/13/18 06:21 Carbon Dioxide 26 mmol/L (22-30) 11/13/18 06:21 Anion Gap -1 mmol/L 11/13/18 06:21 BUN 17 mg/dL (7-17) 11/13/18 06:21 Creatinine 0.93 mg/dL (0.52-1.04) 11/13/18 06:21 Est GFR (CKD-EPI)AfAm 78 (>60 ml/min/1.73 sqM) 11/13/18 06:21 Est GFR (CKD-EPI)NonAf 68 (>60 ml/min/1.73 sqM) 11/13/18 06:21 Glucose 92 mg/dL (74-99) 11/13/18 06:21 Plasma Lactic Acid Andre 0.9 mmol/L (0.7-2.0) 11/13/18 13:25 Calcium 8.3 mg/dL (8.4-10.2) L 11/13/18 06:21 Total Bilirubin 0.4 mg/dL (0.2-1.3) 11/12/18 08:40 AST 27 U/L (14-36) 11/12/18 08:40 ALT 31 U/L (9-52) 11/12/18 08:40 Alkaline Phosphatase 48 U/L (38-126) 11/12/18 08:40 Total Protein 7.1 g/dL (6.3-8.2) 11/12/18 08:40 Albumin 4.3 g/dL (3.5-5.0) 11/12/18 08:40 Amylase 68 U/L (30-110) 11/12/18 08:40 Lipase 185 U/L (23-300) 11/12/18 08:40 Urine Color Yellow 11/12/18 10:11 Urine Appearance Clear (Clear) 11/12/18 10:11 Urine pH 5.5 (5.0-8.0) 11/12/18 10:11 Ur Specific [place] 1.012 (1.001-1.035) 11/12/18 10:11 Urine Protein Trace (Negative) H 11/12/18 10:11 Urine Glucose (UA) Negative (Negative) 11/12/18 10:11 Urine Ketones Trace (Negative) H 11/12/18 10:11 Urine Blood Trace (Negative) H 11/12/18 10:11 Urine Nitrite Negative (Negative) 11/12/18 10:11 Urine Bilirubin Negative (Negative) 11/12/18 10:11 Urine Urobilinogen <2.0 mg/dL (<2.0) 11/12/18 10:11 Ur Leukocyte Esterase Small (Negative) H 11/12/18 10:11 Urine RBC 3 /hpf (0-5) 11/12/18 10:11 Urine WBC 4 /hpf (0-5) 11/12/18 10:11 Ur Squamous Epith Cells 3 /hpf (0-4) 11/12/18 10:11 Urine Bacteria Rare /hpf (None) H 11/12/18 10:11 Urine Mucus Rare /hpf (None) H 11/12/18 10:11 Microbiology 11/12/18 08:40 Blood Blood Culture - Preliminary No Growth after 24 hours 11/12/18 10:11 Urine,Voided Urine Culture - Final Microbiology 11/12/18 08:40 Blood Blood Culture - Preliminary No Growth after 24 hours 11/12/18 10:11 Urine,Voided Urine Culture - Final Assessment and Plan (1) Acute pyelonephritis Narrative/Plan: 58-year-old female who has a history of prior urological abnormality requiring ureteral surgery, relates that she had the sudden onset of high-grade fever chills with rigors and malaise. She had started to have bilateral flank pain as well as suprapubic discomfort and dysuria. With history of prior urinary infection she was concerned to UTI and sought outpatient therapy. Despite the start of Macrobid she developed ongoing fever and presented to the emergency center where there was evidence of relative hypotension and consequently with early sepsis she was admitted to hospital. She is receiving fluid resuscitation her blood pressure is improved, temperature is improved but she still feels poorly. Urine culture is negative so far but was on antimicrobial therapy at the time of the culture. She is unclear of prior pathogen. Ultrasound has been performed without evidence of any obstruction of the urinary system It is likely that she has an early pyelonephritis is etiology of her current symptoms. Receiving fluids in ceftriaxone therapy with what appears to be improvement. Hopefully will have significant improvement overnight and then can contemplate discharge likely on quinolone therapy given her sulfa ALLERGY. If cultures become positivethat will then further guide antibiotic therapy. Current Visit: Yes Status: Acute Code(s): N10 - ACUTE PYELONEPHRITIS SNOMED Code(s): 01608681 (2) Sepsis Current Visit: Yes Status: Acute Code(s): A41.9 - SEPSIS, UNSPECIFIED ORGANISM SNOMED Code(s): 05158409
--- NOTE | 2018-11-13 19:07 | PN ---
PROGRESS NOTE DATE OF SERVICE: 11/13/2018 This 58-year-old woman who was admitted with possible acute pyelonephritis and sepsis is being closely monitored at this time. The patient has significant leukopenia today. No chest pain. No palpitations. The patient had profuse significant night sweats last night. EXAM: Alert and oriented x3. Pulse 58, blood pressure 160/75, respiration 20, temperature 97.9, pulse ox 98% on room air. HEENT: Conjunctivae normal. Oral mucosa moist. NECK: No jugular venous distention. No lymph node enlargement. CARDIOVASCULAR: S1, S2. RESPIRATORY: Diminished breath sounds at the bases. No rhonchi, no crackles. ABDOMEN: Soft, nontender. LEGS: No swelling. NERVOUS SYSTEM: No focal deficits. LAB STUDIES: WBC 1.9 and lactic acid is normal. Abdominal ultrasound showed left-sided hydronephrosis. ASSESSMENT: 1. Possible acute pyelonephritis with sepsis. 2. Increased creatinine with mild acute renal failure. 3. History of hypertension. 4. Left hydronephrosis. 5. History of tubal ligation. 6. History repair of left blocked ureter: RECOMMENDATIONS: Recommend to continue current management, continue symptomatic treatment. I would also recommend urology consultation. Guarded prognosis. Further recommendations to follow. MMODL / IJN: [id number] /
[2018-11-13] MEDS: ACETAMINOPHEN TAB 325 MG TAB PO PRN (20:13)
[2018-11-14 01:56] VITALS: PULSE 65
[2018-11-14 08:13] LABS: Basophils % (A) 0 %; Eosinophils # (A) 0.1 k/uL (0-0.7); Eosinophils % (A) 4 %; HCT 38.5 % (34.0-46.0); HGB 12.7 gm/dL (11.4-16.0); Lymphocytes # (A) 0.7 k/uL (1.0-4.8); Lymphocytes % (A) 18 %; MCHC 32.9 g/dL (31.0-37.0); MCV 85.1 fL (80.0-100.0); Mean Platelet Volume 6.6; Monocytes # (A) 0.2 k/uL (0-1.0); Monocytes % (A) 6 %; Neutrophils # (A) 2.6 k/uL (1.3-7.7); Neutrophils % (A) 70 %; Platelet Count 202 k/uL (150-450); RBC 4.53 m/uL (3.80-5.40); RDW 13.2 % (11.5-15.5); WBC 3.7 k/uL (3.8-10.6)
[2018-11-14 08:38] LABS: Calcium 9.1 mg/dL (8.4-10.2); Potassium 4.2 mmol/L (3.5-5.1)
[2018-11-14 08:41] VITALS: BP 136/82; RESP 16; TEMP 98.5
[2018-11-14] MEDS: PANTOPRAZOLE 40 MG/10 ML VIAL IV SCH (08:43)
[2018-11-14] MEDS: HEPARIN SODIUM,PORCINE 5,000 UNIT/ML 1 ML VIAL SQ SCH (08:43)
[2018-11-14] MEDS: LISINOPRIL 20 MG TAB PO SCH (08:44)
[2018-11-14] MEDS: cefTRIAXone 2,000 MG in SODIUM CHLORIDE 0.9% 100 ML IVPB SCH (08:44)
[2018-11-14] MEDS ORDERED: LEVOFLOXACIN 500 MG TAB PO STA (13:28)
[2018-11-14] MEDS: SODIUM CHLORIDE 0.9% 1,000 ML IV SCH (13:40)
--- NOTE | 2018-11-14 18:02 | P.PN ---
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 Her has had difficulties related to the tendon rupture and has had multiple repairs and ongoing complications. She relates that her workday was extremely busy a few days ago and she believes in the 12 hour shift she did not even go to the bathroom. She denied eater drink much fluids throughout that time. Within 48 hours she started to feel like she had a urinary tract infection associated with some urgency burning and bilateral flank discomfort. She did go to the walk-in clinic and urinalysis was markedly abnormal and was placed on Macrobid. Despite this she then started to develop fevers up to 103 associated with chills and rigor. Tylenol succeeded in reducing the fever. However the fever then reoccurred and she remained very symptomatic and her brought her to the emergency center where she had low-grade fever but hypotension. As a she's been admitted to hospital and infectious diseases consultation was requested. November 14 2018 patient is feeling considerably better. Flank pain is improved. Nausea and poor appetite has resolved. Suprapubic pain is improving. She is not having as much frequency either with urination.Definitely feels better. Objective - Vital Signs Vital signs: Vital Signs Temp 98.5 F 11/14/18 08:30 Pulse 65 11/14/18 08:30 Resp 16 11/14/18 08:30 BP 136/82 11/14/18 08:30 Pulse Ox 97 11/14/18 08:30 Intake & Output 11/13/18 11/14/18 11/14/18 18:59 06:59 18:59 Intake Total 640 420 Balance 640 420 Intake: Intake, IV Titration 640 420 Amount Sodium Chloride 0.9% 1, 600 000 ml @ 100 mls/hr IV . Q10H STA Rx#:[id number] Sodium Chloride 0.9% 1, 40 320 000 ml @ 20 mls/hr IV . Q24H NAGI Rx#:[id number] cefTRIAXone 2,000 mg In 100 Sodium Chloride 0.9% 100 ml @ 100 mls/hr IVPB Q12HR NAGI Rx#:[id number] Other: # Voids 3 - Exam patient cool to touch no longer with evidence of fever or sweating HEENT: Anicteric conjunctiva are pink and moist nasal mucosa grossly intact without significant lesions, there is no thrush. Neck: The neck is supple without significant lymphadenopathy or thyromegaly. Lungs: Good bilateral air entry without significant crackles or wheezing. There is no significant bronchial sounds. There is no egophony or dullness. Heart: Regular rate and rhythm with an audible S1-S2, no S3 no S4. There is no significant murmur click or rub, PMI was nondisplaced. Abdomen: Positive bowel sounds soft and nontender without palpable masses or organomegaly. There was no guarding or rebound. Minimal bilateral flank discomfort is much improved suprapubic discomfort resolved Extremities: The upper extremities have excellent pulses they are symmetric, no significant petechiae or telangiectasia. No splinter hemorrhages were noted. The lower extremities are free from significant edema. The peripheral pulses were 2+ and symmetric. Neuro: Awake alert oriented to person place and time. There are no acute new gross focal sensory motor deficits. - Labs CBC & Chem 7: 11/14/18 07:48 11/14/18 07:48 Labs: Abnormal Lab Results - Last 24 Hours (Table) 11/14/18 11/14/18 Range/Units 07:48 07:48 WBC 3.7 L (3.8-10.6) k/uL Lymphocytes # 0.7 L (1.0-4.8) k/uL Chloride 109 H (98-107) mmol/L Microbiology - Last 24 Hours (Table) 11/12/18 08:40 Blood Culture - Preliminary Blood No Growth after 48 hours Laboratory Results WBC 3.7 k/uL (3.8-10.6) L 11/14/18 07:48 RBC 4.53 m/uL (3.80-5.40) 11/14/18 07:48 Hgb 12.7 gm/dL (11.4-16.0) 11/14/18 07:48 Hct 38.5 % (34.0-46.0) 11/14/18 07:48 MCV 85.1 fL (80.0-100.0) 11/14/18 07:48 MCH 28.0 pg (25.0-35.0) 11/14/18 07:48 MCHC 32.9 g/dL (31.0-37.0) 11/14/18 07:48 RDW 13.2 % (11.5-15.5) 11/14/18 07:48 Plt Count 202 k/uL (150-450) 11/14/18 07:48 Neutrophils % 70 % 11/14/18 07:48 Lymphocytes % 18 % 11/14/18 07:48 Monocytes % 6 % 11/14/18 07:48 Eosinophils % 4 % 11/14/18 07:48 Basophils % 0 % 11/14/18 07:48 Neutrophils # 2.6 k/uL (1.3-7.7) 11/14/18 07:48 Lymphocytes # 0.7 k/uL (1.0-4.8) L 11/14/18 07:48 Monocytes # 0.2 k/uL (0-1.0) 11/14/18 07:48 Eosinophils # 0.1 k/uL (0-0.7) 11/14/18 07:48 Basophils # 0.0 k/uL (0-0.2) 11/14/18 07:48 PT 10.2 sec (9.0-12.0) 11/12/18 08:40 INR 0.9 (<1.2) 11/12/18 08:40 APTT 23.6 sec (22.0-30.0) 11/12/18 08:40 Sodium 142 mmol/L (137-145) 11/14/18 07:48 Potassium 4.2 mmol/L (3.5-5.1) 11/14/18 07:48 Chloride 109 mmol/L (98-107) H 11/14/18 07:48 Carbon Dioxide 25 mmol/L (22-30) 11/14/18 07:48 Anion Gap 8 mmol/L 11/14/18 07:48 BUN 12 mg/dL (7-17) 11/14/18 07:48 Creatinine 0.83 mg/dL (0.52-1.04) 11/14/18 07:48 Est GFR (CKD-EPI)AfAm 89 (>60 ml/min/1.73 sqM) 11/14/18 07:48 Est GFR (CKD-EPI)NonAf 77 (>60 ml/min/1.73 sqM) 11/14/18 07:48 Glucose 99 mg/dL (74-99) 11/14/18 07:48 Plasma Lactic Acid Andre 0.9 mmol/L (0.7-2.0) 11/13/18 13:25 Calcium 9.1 mg/dL (8.4-10.2) 11/14/18 07:48 Total Bilirubin 0.4 mg/dL (0.2-1.3) 11/12/18 08:40 AST 27 U/L (14-36) 11/12/18 08:40 ALT 31 U/L (9-52) 11/12/18 08:40 Alkaline Phosphatase 48 U/L (38-126) 11/12/18 08:40 Total Protein 7.1 g/dL (6.3-8.2) 11/12/18 08:40 Albumin 4.3 g/dL (3.5-5.0) 11/12/18 08:40 Amylase 68 U/L (30-110) 11/12/18 08:40 Lipase 185 U/L (23-300) 11/12/18 08:40 Urine Color Yellow 11/12/18 10:11 Urine Appearance Clear (Clear) 11/12/18 10:11 Urine pH 5.5 (5.0-8.0) 11/12/18 10:11 Ur Specific Monitor 1.012 (1.001-1.035) 11/12/18 10:11 Urine Protein Trace (Negative) H 11/12/18 10:11 Urine Glucose (UA) Negative (Negative) 11/12/18 10:11 Urine Ketones Trace (Negative) H 11/12/18 10:11 Urine Blood Trace (Negative) H 11/12/18 10:11 Urine Nitrite Negative (Negative) 11/12/18 10:11 Urine Bilirubin Negative (Negative) 11/12/18 10:11 Urine Urobilinogen <2.0 mg/dL (<2.0) 11/12/18 10:11 Ur Leukocyte Esterase Small (Negative) H 11/12/18 10:11 Urine RBC 3 /hpf (0-5) 11/12/18 10:11 Urine WBC 4 /hpf (0-5) 11/12/18 10:11 Ur Squamous Epith Cells 3 /hpf (0-4) 11/12/18 10:11 Urine Bacteria Rare /hpf (None) H 11/12/18 10:11 Urine Mucus Rare /hpf (None) H 11/12/18 10:11 Microbiology 11/12/18 08:40 Blood Blood Culture - Preliminary No Growth after 48 hours 11/12/18 10:11 Urine,Voided Urine Culture - Final - Imaging and Cardiology renal ultrasound without evidence of hydronephrosis obstruction or stone Assessment and Plan (1) Acute pyelonephritis Narrative/Plan: 58-year-old female who has a history of prior urological abnormality requiring ureteral surgery, relates that she had the sudden onset of high-grade fever chills with rigors and malaise. She had started to have bilateral flank pain as well as suprapubic discomfort and dysuria. With history of prior urinary infection she was concerned to UTI and sought outpatient therapy. Despite the start of Macrobid she developed ongoing fever and presented to the emergency center where there was evidence of relative hypotension and consequently with early sepsis she was admitted to hospital. She is receiving fluid resuscitation her blood pressure is improved, temperature is improved but she still feels poorly. Urine culture is negative so far but was on antimicrobial therapy at the time of the culture. She is unclear of prior pathogen. Ultrasound has been performed without evidence of any obstruction of the urinary system It is likely that she has an early pyelonephritis is etiology of her current symptoms. Receiving fluids in ceftriaxone therapy with what appears to be improvement. Hopefully will have significant improvement overnight and then can contemplate discharge likely on quinolone therapy given her sulfa ALLERGY. If cultures become positive that will then further guide antibiotic therapy. 11/14/2018 patient feels considerably better. With hydration and antibiotic therapy her symptoms have generally resolved. She 's having no further fever. No longer feels sweaty with a broken fever. She is ready for discharge to home. Discussed with the attending service. Antibiotic therapy with Levaquin is given she will complete a course for an acute pyelonephritis. We discussed adequate hydration while she is at work and restroom break occurring at least once or twice per the shift to reduce the risk of recurrent urinary tract infection. Ultrasound is normal, no evidence of any obstruction process. Follow-up with urology in the outpatient setting, not needed for inpatient. Status: Acute Code(s): N10 - ACUTE PYELONEPHRITIS SNOMED Code(s): 08528860 (2) Sepsis Status: Acute Code(s): A41.9 - SEPSIS, UNSPECIFIED ORGANISM SNOMED Code(s): 62087455
--- NOTE | 2018-11-15 08:08 | DS ---
DISCHARGE SUMMARY DATE OF SERVICE: 11/14/2018. FINAL DIAGNOSES: 1. Possible acute pyelonephritis sepsis present on admission, improved. 2. Increased creatinine with mild acute renal failure. 3. History of hypertension. 4. Left hydronephrosis. 5. History of tubal ligation. 6. History of repair of the left blocked ureter. 7. Failure of outpatient treatment. DISCHARGE DISPOSITION: The patient is being discharged in stable condition with guarded prognosis. HISTORY OF PRESENT ILLNESS: This 58-year-old woman with past medical history of multiple medical problems, was admitted with features of left pyelonephritis and sepsis. Patient admitted with IV antibiotics. Dr. Hood saw the patient from the Infectious Disease point of view. Patient treated with IV antibiotics. Patient improved significantly. The cultures are negative so far. Recommended follow up with Urology as an outpatient. The patient followed by Dr. Ramirez in the outpatient setting. On exam, vital signs stable. Cardio system: S1, S2. Abdomen soft. Nervous system: No focal deficits. DISCHARGE ADVICE AND MEDICATIONS: 1. Discharge diet is cardiac diet. 2. Activity limited until followup. 3. Follow up with Dr. Ramirez in 2-3 days. 4. Follow up with Urology as advised. 5. Follow up with Infectious Disease as advised. DISCHARGE MEDICATIONS: 1. Ecotrin 650 daily p.r.n. 2. Altace 20 mg daily. 3. Tylenol 650 q.6h p.r.n. 4. Levaquin 500 mg daily for 13 tablets. MMODL / IJN: [id number] /
== END 2018-11-14 13:53 | disposition home or self-care (01) | DRG 872 ==
LOC: EC 07:59 → 3NMEDONC 12:15 → 4SSUR 15:54
PROVIDERS: ADMIT Internal Medicine; ATTEND Internal Medicine
DX: A41.9 Sepsis, unspecified organism (principal); N17.9 Acute kidney failure, unspecified; N13.6 Pyonephrosis; D72.819 Decreased white blood cell count, unspecified; I10 Essential (primary) hypertension; Z88.2 Allergy status to sulfonamides; Z79.82 Long term (current) use of aspirin; Z79.899 Other long term (current) drug therapy; Z98.51 Tubal ligation status; Z80.9 Family history of malignant neoplasm, unspecified; Z82.49 Family history of ischemic heart disease and other diseases of the circulatory system
CPT/HCPCS: 36415; 76770; 80048; 80053; 81001; 82150; 83605; 83690; 85025; 85610; 85730; 87040; 87086; 96361; 96365; 96375; 99285

== ENCOUNTER → 2018-12-08 | Outpatient (CLI) | payer BC ==
[~2018-12-08] MED LIST changes: -DEXAMETHASONE SOD PHOSPHATE 10 MG/ML 1 ML VIAL IV ONE; +FUROSEMIDE 10 MG/ML 2 ML VIAL IV ONE; -HYDROmorphone 0.5 MG/0.5 ML SYRINGE IVP PRN; -LACTATED RINGERS 1,000 ML IV SCH; -LIDOCAINE 1% 20 ML VIAL (10MG/ML) FOR IV START INTRADERMA PRN; -ONDANSETRON 4 MG/2 ML VIAL IVP ONE; -SCOPOLAMINE 1.5MG/72HR PATCH TRANSDERM ONE
--- NOTE | 2018-12-09 18:45 | NM ---
EXAMINATION TYPE: NM Lasix renogram DATE OF EXAM: 12/08/2018 COMPARISON: Correlation ultrasound kidneys 11/12/2018 HISTORY: 58-year-old female left-sided hydronephrosis, prior surgery for left ureteral obstruction ap proximately 20 years ago. TECHNIQUE: Following administration of 10.5 mCi Tc 99m MAG3, renal imaging is performed. 20mg Lasix i s administered at time point 10 minutes Immediate images post injection. FINDINGS: Renal split function Left: 39.1 %. Right: 60.9 %. Max renal flow left: 6 minutes. Max renal flow right: 3 minutes. Satisfactory accumulation of radiotracer within both renal collecting systems. However, there is decr eased overall functioning of the left kidney with slower uptake and excretion and decreased overall f low. After the administration of Lasix at 10 minutes, there is prompt excretion from the right collec ting systems. Excretion is delayed and blunted from the left kidney but T 1/2 on both sides occurs at 5 minutes after Lasix administration. T 1/2 left: 15.4 minutes. T 1/2 right: 15 minutes. IMPRESSION: 1. Decreased overall function of the left kidney (approximately half the function as compared to the right kidney). 2. However, T 1/2 after Lasix administration is 5 minutes on both sides. This suggests that there is no obstruction.
== END | disposition home or self-care (01) ==
LOC: RADNMMAIN 06:55
PROVIDERS: ATTEND Urology
DX: R94.4 Abnormal results of kidney function studies (principal); N13.30 Unspecified hydronephrosis
CPT/HCPCS: 78708; A9562

== ENCOUNTER → 2019-03-19 | Outpatient (CLI) | payer BC ==
--- NOTE | 2019-03-20 08:47 | USB ---
Reason for exam: follow-up at short interval from prior study. History: Patient is postmenopausal. Family history of breast cancer in mother at age 58. US biopsy breast VAD LT of the left breast, September 14, 2018. Retro-pectoral silicone gel implants in both breasts, 2014. Benign excisional biopsy of the right breast, 2005. Saline implants in both breasts, 1992. Taking progesterone for 6 months beginning at age 57. Physical Findings: Nurse did not find any significant physical abnormalities on exam. US Breast LT Left complete breast ultrasound includes all four quadrants, the retroareolar region and axilla. Finding demonstrates a 0.3 x 0.4 x 0.2cm oval, cystic, mixed lesion at 12 o'clock, a 0.4 x 0.4 x 0.2cm oval, cystic, complex lesion at 1 o'clock, a 0.3 x 0.2 x 0.2cm oval, cystic lesion at 2 o'clock, a 0.4 x 0.3 x 0.3cm oval, cystic lesion at 2 o'clock, a 0.6 x 0.5 x 0.2cm oval, cystic, complex lesion at 3 o'clock, a 1.2 x 0.7 x 0.3cm oval, cystic, complex lesion at 6 o'clock, a 0.3 x 0.3 x 0.2cm cystic lesion at 10 o'clock and ductal ectasia at the posterior nipple. These results were verbally communicated with the patient and result sheet given to the patient on 03/19/19. ASSESSMENT: Incomplete: need additional imaging evaluation, BI-RAD 0 RECOMMENDATION: Breast MRI of the left breast.
== END | disposition home or self-care (01) ==
LOC: RADUSWWP 12:48
PROVIDERS: ATTEND Surgery
DX: R92.8 Other abnormal and inconclusive findings on diagnostic imaging of breast (principal)

== ENCOUNTER → 2019-04-13 | Outpatient (CLI) | payer BC ==
--- NOTE | 2019-04-13 14:36 | BMR ---
EXAMINATION TYPE: MR breast BILAT wo/w con DATE OF EXAM: 04/13/2019 COMPARISON: Left breast complete ultrasound March 19, 2019 BI-RADS 0 and older ultrasounds. 3-D bilatera l breast mammogram September 05, 2018 BI-RADS 2. Prior MRI bilateral breasts September 02, 2017 HISTORY: Abnormal recent ultrasound, Family hx of breast CA. Nondiagnostic ultrasound guided left vladimir ast biopsy September 14, 2018. CONTRAST: Multiplanar, multisequence images of the breasts were acquired utilizing 6.5 mL intravenous Gadavist gadolinium contrast. TECHNIQUE: A series of fat and water weighted images in the long and short axis views of both breasts are obtained in conjunction with dynamic contrast MRI with subtraction technique. Three-dimensional and additional postprocessing imaging is created on independent workstation and reviewed during offi cial interpretation of this study. FINDINGS: There is redemonstration of bilateral subpectoral silicone implants. Implants are symmetric and felt within normal limits in size. There is no suspicious infolding to suggest intracapsular rup ture. No suspicious silicone identified outside implants to suggest extracapsular rupture. Heterogeneously dense fibroglandular tissue throughout both breasts is redemonstrated anterior to the implants.. There is mild symmetric background enhancement identified. Asymmetric left nipple enhance ment is redemonstrated. Axial T2-weighted images show numerous small simple appearing thin-walled cys ts bilaterally which this felt to correspond to the recent ultrasound. Findings suggest underlying fi brocystic change. More importantly dynamic postcontrast images show no suspicious enhancing masses or areas of enhancement. No suspicious skin thickening is seen. Chest wall is intact bilaterally. No co ncerning axillary adenopathy is present bilaterally. No suspicious internal mammary lymph nodes are p resent. IMPRESSION: No MRI evidence for invasive malignancy in either breast. Overall fibrocystic change is p resent. BI-RADS 2 benign findings right breast. BI-RADS 2 benign findings left breast. Recommendation: Bilateral breast mammogram August 2019 to be back on annual schedule.
== END | disposition home or self-care (01) ==
LOC: RADMRIMAIN 11:09
PROVIDERS: ATTEND Surgery
DX: R92.8 Other abnormal and inconclusive findings on diagnostic imaging of breast (principal); Z85.3 Personal history of malignant neoplasm of breast
CPT/HCPCS: 77049; C8937; A9585

== ENCOUNTER → 2019-08-27 | Outpatient (CLI) | payer BC ==
--- NOTE | 2019-08-27 12:01 | MM ---
Reason for exam: additional evaluation requested from prior study. Last mammogram was performed 1 year ago. History: Patient is postmenopausal. Family history of breast cancer in mother at age 58. US biopsy breast VAD LT of the left breast, September 14, 2018. Retro-pectoral silicone gel implants in both breasts, 2014. Benign excisional biopsy of the right breast, 2005. Saline implants in both breasts, 1992. Took progesterone for 1 year beginning at age 57. Physical Findings: Nurse did not find any significant physical abnormalities on exam. MG 3D Diag Mammo Imp W/Cad MC Bilateral CC and MLO view(s) were taken. Prior study comparison: September 05, 2018, bilateral MG 3d diag mammo imp w/cad MC. August 23, 2017, bilateral MG 3d diag mammo imp w/cad MC. The breast tissue is heterogeneously dense. This may lower the sensitivity of mammography. Benign appearing bilateral calcifications. No suspicious abnormality. Bilateral retropectoral silicone implants. These results were verbally communicated with the patient and result sheet given to the patient on 08/27/19. ASSESSMENT: Incomplete: need additional imaging evaluation, BI-RAD 0 RECOMMENDATION: Ultrasound of the left breast. (to compare prior masses seen on ultrasound)
--- NOTE | 2019-08-27 12:06 | USB ---
Reason for exam: additional evaluation requested from abnormal screening. History: Patient is postmenopausal. Family history of breast cancer in mother at age 58. US biopsy breast VAD LT of the left breast, September 14, 2018. Retro-pectoral silicone gel implants in both breasts, 2014. Benign excisional biopsy of the right breast, 2005. Saline implants in both breasts, 1992. Took progesterone for 1 year beginning at age 57. US Breast LT Left complete breast ultrasound includes all four quadrants, the retroareolar region and axilla. Finding demonstrates a 0.2 x 0.2 x 0.1cm oval, complex, cystic lesion at 12 o'clock (prior 0.3 x 0.2 x 0.4cm), a 0.3 x 0.2 x 0.2cm oval, complex, cystic lesion at 1 o'clock, a 0.4 x 0.3 x 0.2cm oval lymph node, non-enlarged at 1 o'clock, a 0.3 x 0.4 x 0.3cm oval, clustered, cystic lesion at 1 o'clock (prior 0.4 x 0.3 x 0.3cm), a 0.5 x 0.4 x 0.3cm oval, cystic lesion at 2 o'clock (prior 0.4 x 0.4cm and prior to that 0.6cm), a 0.6 x 0.5 x 0.3cm oval, clustered, complex, cystic lesion at 3 o'clock (prior 1.2 x 0.7 x 0.3cm), a 0.5 x 0.4 x 0.3cm cystic, complex lesion at 6 o'clock, a 0.4 x 0.3 x 0.2cm clustered, cystic lesion at 10 o'clock, a 0.3 x 0.4 x 0.4cm hyperechoic lesion at 12 o'clock, questionable lipoma and a posterior nipple duct. These results were verbally communicated with the patient and result sheet given to the patient on 08/27/19. ASSESSMENT: Benign, BI-RAD 2 RECOMMENDATION: Routine screening mammogram of both breasts in 1 year.
== END | disposition home or self-care (01) ==
LOC: RADMAMWWP 09:30
PROVIDERS: ATTEND Surgery
DX: R92.8 Other abnormal and inconclusive findings on diagnostic imaging of breast (principal)
CPT/HCPCS: 77062; 77066

== ENCOUNTER → 2020-08-25 | Outpatient (CLI) | payer BC ==
--- NOTE | 2020-08-26 13:24 | MM ---
Reason for exam: screening (asymptomatic). Last mammogram was performed 1 year ago. History: Patient is postmenopausal. Family history of breast cancer in mother at age 58. US biopsy breast VAD LT of the left breast, September 14, 2018. Retro-pectoral silicone gel implants in both breasts, 2014. Benign excisional biopsy of the right breast, 2005. Saline implants in both breasts, 1992. Took progesterone for 1 year beginning at age 57. Physical Findings: A clinical breast exam by your physician is recommended on an annual basis and results should be correlated with mammographic findings. MG 3D Screen Mammo Imp/Cad Bilateral CC, MLO, and ID view(s) were taken. Prior study comparison: August 27, 2019, bilateral MG 3d diag mammo imp w/cad MC. September 05, 2018, bilateral MG 3d diag mammo imp w/cad MC. The breast tissue is heterogeneously dense. This may lower the sensitivity of mammography. Bilateral benign oil cyst calcifications. Small intramammary lymph nodes upper outer quadrant of both breasts. A few faint vascular calcifications are noted. Retropectoral silicone implants. ASSESSMENT: Benign, BI-RAD 2 RECOMMENDATION: Routine screening mammogram of both breasts in 1 year.
== END | disposition home or self-care (01) ==
LOC: RADMAMWWP 11:39
PROVIDERS: ATTEND Obstetrics & Gynecology
DX: Z12.31 Encounter for screening mammogram for malignant neoplasm of breast (principal); Z80.3 Family history of malignant neoplasm of breast
CPT/HCPCS: 77063; 77067

== ENCOUNTER → 2020-12-25 | Outpatient (CLI) | payer BC ==
[2020-12-25 11:27] LABS: Chol/HDL Ratio 2.69; LDL Cholesterol,Calculated 87.2 mg/dL (0.0-131.0); VLDL Calculation 20.8 mg/dL (5.00-40.00)
== END | disposition home or self-care (01) ==
LOC: LABWHC1 07:07
PROVIDERS: ATTEND Internal Medicine Cardiovascular Disease
DX: E78.2 Mixed hyperlipidemia (principal)
CPT/HCPCS: 36415; 80061; 84450; 84460

== ENCOUNTER → 2021-06-10 | Outpatient (CLI) | payer BC | END | disposition home or self-care (01) | LOC: LABWHC1 13:50 | PROVIDERS: ATTEND Emergency Medicine | DX: Z20.822 Contact with and (suspected) exposure to COVID-19 (principal) | CPT/HCPCS: 87635; C9803 ==

== ENCOUNTER → 2021-08-27 | Outpatient (CLI) | payer BC ==
--- NOTE | 2021-08-27 15:01 | MM ---
Reason for exam: screening (asymptomatic). Last mammogram was performed 1 year ago. History: Patient is postmenopausal. Family history of breast cancer in mother at age 58. US biopsy breast VAD LT of the left breast, September 14, 2018. Retro-pectoral silicone gel implants in both breasts, 2014. Benign excisional biopsy of the right breast, 2005. Saline implants in both breasts, 1992. Took progesterone for 1 year beginning at age 57. Physical Findings: A clinical breast exam by your physician is recommended on an annual basis and results should be correlated with mammographic findings. MG 3D Screen Mammo Imp/Cad Bilateral CC, MLO, and ID view(s) were taken. Prior study comparison: August 25, 2020, bilateral MG 3d screen mammo imp/cad. August 27, 2019, bilateral MG 3d diag mammo imp w/cad MC. The breast tissue is heterogeneously dense. This may lower the sensitivity of mammography. There are benign appearing round calcifications bilaterally. Bilateral subpectoral implants redemonstrated. ASSESSMENT: Benign, BI-RAD 2 RECOMMENDATION: Routine screening mammogram of both breasts in 1 year.
== END | disposition home or self-care (01) ==
LOC: RADMAMWWP 11:23
PROVIDERS: ATTEND Obstetrics & Gynecology
DX: Z12.31 Encounter for screening mammogram for malignant neoplasm of breast (principal); Z80.3 Family history of malignant neoplasm of breast; Z78.0 Asymptomatic menopausal state
CPT/HCPCS: 77063; 77067

== ENCOUNTER → 2021-09-08 | Outpatient (CLI) | payer BC ==
--- NOTE | 2021-09-08 15:29 | BD ---
EXAMINATION TYPE: Axial Bone Density DATE OF EXAM: 09/08/2021 COMPARISON: DEXA bone scan September 05, 2018 CLINICAL HISTORY: Postmenopausal female. Height: 5 FT 5 1/4 IN Weight: 141 FRAX RISK QUESTIONS: Alcohol (3 or more units per day): NO Family History (Parent hip fracture): NO Glucocorticoids (More than 3mos): NO (Ex: prednisone, prednisolone, methylprednisolone, dexamethasone, and hydrocortisone). History of Fracture in Adulthood: YES Secondary Osteoporosis: 1. Type 1 Diabetes: NO 2. Hyperthyroidism: NO 3. Menopause before 45: NO 4. Malnutrition: NO 5. Chronic liver disease: NO Rheumatoid Arthritis: NO Current Tobacco Use: NO RISK FACTORS HISTORY OF: Surgery to Spine/Hip(right/left)/Wrist (right/left): NO Family History of Osteoporosis: YES Active: YES Diet low in dairy products/other sources of calcium: NO Postmenopausal woman: AGE 51 Take estrogen and/or progesterone medications: NO Lost more than 2 inches in height since high school: NO MEDICATIONS: Additional Medications: ALTACE, LIPITOR, Additional History: EXAM MEASUREMENTS: Bone mineral densitometry was performed using the [employer] System. Bone mineral density as measured about the Lumbar spine is: ----- L1-L4(G/cm2): 1.318 T Score Values are as follows: ----- L2: 1.0 ----- L3: 1.5 ----- L4: 1.2 ----- L1-L4: 1.1 Bone mineral density has: DECREASED -3.1 % since study of: 2017 Bone mineral density about the R hip (g/cm2): 0.946 Bone mineral density about the L hip (g/cm2): 0.994 T Score values are as follows: -----R Neck: -0.7 -----L Neck: -0.3 -----R Total: -0.6 -----L Total: -0.3 Bone mineral density has: DECREASED -5.7 % since study of: 2017 IMPRESSION: Normal (Values between +1 and -1 indicate normal bone mass). Consider repeating this study in 5 year s or sooner if there is some new clinical indication. NOTE: T-SCORE=SD OF THE YOUNG ADULT MEAN.
== END | disposition home or self-care (01) ==
LOC: RADBDWWP 10:49
PROVIDERS: ATTEND Obstetrics & Gynecology
DX: Z12.31 Encounter for screening mammogram for malignant neoplasm of breast (principal); Z80.3 Family history of malignant neoplasm of breast
CPT/HCPCS: 77080

== ENCOUNTER → 2021-12-31 | Outpatient (CLI) | payer BC ==
[2021-12-31 10:52] LABS: ALT 14 U/L (8-44); AST 21 U/L (13-35); LDL Cholesterol,Calculated 93.6 mg/dL (0.0-131.0); VLDL Calculation 14.66 mg/dL (5.00-40.00)
== END | disposition home or self-care (01) ==
LOC: LABWHC1 06:53
PROVIDERS: ATTEND Internal Medicine Cardiovascular Disease
DX: E78.2 Mixed hyperlipidemia (principal)
CPT/HCPCS: 36415; 80061; 84450; 84460

== ENCOUNTER → 2022-06-23 | Outpatient (CLI) | payer BC ==
[2022-06-23 10:50] LABS: ALT 15 U/L (8-44); AST 21 U/L (13-35); Chol/HDL Ratio 2.62 Ratio; LDL Cholesterol,Calculated 73.2 mg/dL (0.0-131.0); VLDL Calculation 18.92 mg/dL (5.00-40.00)
== END | disposition home or self-care (01) ==
LOC: LABWHC1 07:10
PROVIDERS: ATTEND Internal Medicine Cardiovascular Disease
DX: E78.2 Mixed hyperlipidemia (principal)
CPT/HCPCS: 36415; 80061; 84450; 84460

== ENCOUNTER → 2022-08-31 | Outpatient (CLI) | payer BC ==
[2022-08-31 08:40] VITALS: BP 177/94; PULSE 62; RESP 17; TEMP 98.3
--- NOTE | 2022-08-31 09:34 | P.HPOB ---
History of Present Illness H&P Date: 08/31/22 Chief Complaint: The patient is here for her routine gynecologic exam and ma mmogram. This is a 62-year-old with an LMP of 2007. The patient is here to establish with this office. She previously has seen Dr. Christie for her well woman exams. Her last pelvic exam was 1 year ago. Her last Pap smear was about 2 years ago according to the patient. She is without gynecologic complaints and denies any postmenopausal bleeding. Review of Systems Her weight has been stable. She denies respiratory problems. Cardiac: After noticing some irregular beats on her physical exam, she has mentioned that she has had occasional palpitations and occasional lightheadedness recently when she gets up quickly. GI: She denies GI problems. Past Medical History Past Medical History: Hyperlipidemia, Hypertension Additional Past Medical History / Comment(s): PAST VICE PRESIDENT SUPPLY CHAIN HISTORY: She has no history of STDs. History of Any Multi-Drug Resistant Organisms: None Reported Past Surgical History: Breast Surgery, Tubal Ligation, Uterine Ablation Additional Past Surgical History / Comment(s): REPAIR LEFT BLOCKED URETER, b ilateral breast implants 1990 and replaced with silicone implants in 2016. Endometrial ablation at age [age]. Colonoscopy 2018(next after 5yr). 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 No animals history related Smoking Status: Never smoker Past Alcohol Use History: Occasional (1 or 2 per week) Past Drug Use History: None Reported Additional History: She has been since 2013 and this is her second marriage. 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 - Past Family History Mother Family Medical History: Cancer Additional Family Medical History / Comment(s): Breast cancer at age 58. Maternal aunt had uterine cancer. Father Family Medical History: AFIB, CVA/TIA, Diabetes Mellitus Sister(s) Family Medical History: Cancer Additional Family Medical History / Comment(s): Uterine cancer. Medications and Allergies Home Medications Medication Instructions Recorded Confirmed Type ramipriL [Altace] 20 mg PO DAILY 10/27/18 08/31/22 History Aspirin EC [Ecotrin] 650 mg PO DAILY PRN 11/12/18 08/31/22 History Acetaminophen Tab [Tylenol] 650 mg PO Q6HR PRN tab 11/14/18 08/31/22 Rx Atorvastatin Calcium [Lipitor] 40 mg PO DAILY 08/31/22 08/31/22 History Allergies Allergy/AdvReac Type Severity Reaction Status Date / Time Sulfa (Sulfonamide Allergy Rash/Hives Verified 08/31/22 08:35 Antibiotics) Exam Vital Signs Temp Pulse Resp BP Pulse Ox 08/31/22 08:36 98.3 F 62 17 177/94 99 Intake and Output 08/30/22 08/31/22 08/31/22 22:59 06:59 14:59 Other: Weight 64.41 kg Height 5 feet 5 inches, weight 142 pounds, BMI 23.6. This is a well-developed well-nourished white female who is alert and oriented times 3 in no acute distress. HEENT: Within normal limits. NECK: Supple without mass or thyromegaly. CHEST AND LUNGS: Clear to auscultation. HEART: Intermittent irregular beats among stretches of sinus rhythm. Regular rate. BREASTS: Are without mass or discharge. Breasts are consistent with bilateral implants. AXILLARY EXAM: Negative for adenopathy. BACK: Negative for CVA tenderness. ABDOMEN: Soft, nontender, without palpable masses. PELVIC EXAM: Normal external genitalia with moderate atrophy. Cervix and vagina appear normal with mild atrophy. There is no unusual discharge. There is no evidence of prolapse. The uterus is midposition, nongravid size and nontender. There are no palpable adnexal masses or tenderness. RECTAL EXAM: Rectovaginal exam is negative for mass or tenderness and is negative for occult blood. EXTREMITIES: Nontender. IMPRESSION: 1. 62-year-old menopausal female with normal gynecologic exam. 2. Intermittent irregular heartbeats with occasional palpitations and lighthea dedness noted by the patient. She states that recently the symptoms have been more common. 3. History of chronic hypertension with elevated blood pressure. PLAN: 1. Pap smear cotest was performed. We will obtain records from Dr. Christie's office regarding her last 10 years of cervical screening tests. If adequate screening can be demonstrated and her Pap smear cord test is negative, we will d iscontinue Pap smears after age 65. 2. Self breast awareness was discussed with the patient. We have also discussed symptoms associated with inflammatory breast cancer. 3. Screening mammogram will be done today. 4. Osteoporosis prevention was discussed. I have stressed the importance of adequate calcium, vitamin D and regular exercise. Recommended amounts of calcium and vitamin D were also discussed. She had a normal bone density test on 08/27/2021. We will repeat this after approximate 5 years. 5. She has completed her Covid vaccination series and has received a booster. 6. We have discussed her irregular heartbeats and her occasional palpitations and lightheadedness. I have recommended that she see her cosmetology educator, Dr. Garcia regarding these findings, symptoms and for her elevated blood pressure. I have also recommended she check her own blood pressure at home on a regular basis. She states she will make an appointment to see Dr. Garcia right away. 7. She was advised to return in one year for her annual well woman exam.
--- NOTE | 2022-08-31 09:58 | MM ---
Reason for Exam: Hx of breast augmentation, asymptomatic. Last screening mammogram was performed 12 month(s) ago. Patient History: Menarche at age 11. First Full-Term at age 19. Postmenopausal. Patient has history of breast feeding. Progesterone for 1 year from age 57 until age 58. 2005, Benign Excisional Biopsy on the right side. 09/14/2018, Core Biopsy on the Left side. 1992, Bilateral Implants. 2014, Bilateral Implants. Mother had breast cancer, age 58. Risk Values: Idalmis 5 year model risk: 4.6%. NCI Lifetime model risk: 17.5%. Prior Study Comparison: 07/26/2016 Bilateral Screening Mammogram, [facility]. 08/23/2017 Bilateral Diagnostic Mammogram, [facility]. 09/05/2018 Bilateral Diagnostic Mammogram, [facility]. 08/27/2019 Bilateral Diagnostic Mammogram, [facility]. 08/25/2020 Bilateral Screening Mammogram, [facility]. 08/27/2021 Bilateral Screening Mammogram, [facility]. Tissue Density: The breast tissue is heterogeneously dense. This may lower the sensitivity of mammography. Findings: Analyzed By CAD. Bilateral retropectoral implants are demonstrated. No axillary tail lymph nodes on both sides are unchanged. Bilateral scattered benign oil cyst calcifications. Chronic nodularity 6:00 left breast middle depth. No significant change from prior exams. Overall Assessment: Benign, BI-RAD 2 Management: Screening Mammogram of both breasts in 1 year. 1. Patient should continue monthly self breast exams. 2. A clinical breast exam by your physician is recommended on an annual basis. 3. This exam should not preclude additional follow-up of suspicious palpable abnormalities. Note that per NCCN guidelines, a five-year risk assessment greater than 1.67% is used to assess eligibility for a risk reducing agent. Electronically signed and approved by: Kathelen Israel M.D. Radiologist
--- NOTE | 2022-08-31 09:58 | MM ---
Reason for Exam: Hx of breast augmentation, asymptomatic. Last screening mammogram was performed 12 month(s) ago. Patient History: Menarche at age 11. First Full-Term at age 19. Postmenopausal. Patient has history of breast feeding. Progesterone for 1 year from age 57 until age 58. 2005, Benign Excisional Biopsy on the right side. 09/14/2018, Core Biopsy on the Left side. 1992, Bilateral Implants. 2014, Bilateral Implants. Mother had breast cancer, age 58. Risk Values: Idalmis 5 year model risk: 4.6%. NCI Lifetime model risk: 17.5%. Prior Study Comparison: 07/26/2016 Bilateral Screening Mammogram, [facility]. 08/23/2017 Bilateral Diagnostic Mammogram, [facility]. 09/05/2018 Bilateral Diagnostic Mammogram, [facility]. 08/27/2019 Bilateral Diagnostic Mammogram, [facility]. 08/25/2020 Bilateral Screening Mammogram, [facility]. 08/27/2021 Bilateral Screening Mammogram, [facility]. Tissue Density: The breast tissue is heterogeneously dense. This may lower the sensitivity of mammography. Findings: Analyzed By CAD. Bilateral retropectoral implants are demonstrated. No axillary tail lymph nodes on both sides are unchanged. Bilateral scattered benign oil cyst calcifications. Chronic nodularity 6:00 left breast middle depth. No significant change from prior exams. Overall Assessment: Benign, BI-RAD 2 Management: Screening Mammogram of both breasts in 1 year. 1. Patient should continue monthly self breast exams. 2. A clinical breast exam by your physician is recommended on an annual basis. 3. This exam should not preclude additional follow-up of suspicious palpable abnormalities. Note that per NCCN guidelines, a five-year risk assessment greater than 1.67% is used to assess eligibility for a risk reducing agent. Electronically signed and approved by: Kathleen Israel M.D. Radiologist
== END | disposition home or self-care (01) ==
LOC: WWCWWP 08:26
PROVIDERS: ATTEND Obstetrics & Gynecology
DX: Z12.31 Encounter for screening mammogram for malignant neoplasm of breast (principal); Z01.419 Encounter for gynecological examination (general) (routine) without abnormal findings; I10 Essential (primary) hypertension; E78.5 Hyperlipidemia, unspecified; Z78.0 Asymptomatic menopausal state; Z80.3 Family history of malignant neoplasm of breast; Z83.3 Family history of diabetes mellitus; Z88.2 Allergy status to sulfonamides
CPT/HCPCS: 77063; 77067

== ENCOUNTER → 2023-09-06 | Outpatient (CLI) | payer MEDICARE ==
[2023-09-06 10:57] VITALS: BP 134/83; PULSE 62; RESP 16; TEMP 98
--- NOTE | 2023-09-06 11:38 | P.HPOB ---
History of Present Illness H&P Date: 09/06/23 Chief Complaint: The patient is here for her routine gynecologic exam and ma mmogram. This is a 63-year-old with an LMP of 2007. The patient states she is infrequently sexually active and states that it is uncomfortable to have sexual intercourse because of vaginal dryness. The patient is otherwise without gynecologic complaints. Review of Systems The patient has lost 4 pounds over the last year. She denies respiratory, cardiac, or G.I. problems. 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 History of Any Multi-Drug Resistant Organisms: None Reported Past Surgical History: Breast Surgery, Tubal Ligation, Uterine Ablation Additional Past Surgical History / Comment(s): REPAIR LEFT BLOCKED URETER, bilateral breast implants 1990 and replaced with silicone implants in 2016. Endometrial ablation at age [age]. Colonoscopy 2022(next after 7yr). Past Anesthesia/Blood Transfusion Reactions: Postoperative Nausea & Vomiting (PONV) Past Psychological History: No Psychological Hx Reported (PHQ-2 questionaire was given and she scores 0. This is a negative screen for depression.) Additional Psychological History / Comment(s): . 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 No animals history related Smoking Status: Never smoker Past Alcohol Use History: Occasional (2 drinks per week.) Past Drug Use History: None Reported Additional History: She has been since 2013 and this is her second marriage. 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 - Past Family History Mother Family Medical History: Cancer Additional Family Medical History / Comment(s): Breast cancer at age 58. Maternal aunt had uterine cancer. Father Family Medical History: AFIB, CVA/TIA, Diabetes Mellitus Sister(s) Family Medical History: Cancer Additional Family Medical History / Comment(s): Uterine cancer. Medications and Allergies Home Medications Medication Instructions Recorded Confirmed Type ramipriL [Altace] 10 mg PO DAILY 10/27/18 09/06/23 History Aspirin EC [Ecotrin] 650 mg PO DAILY PRN 11/12/18 09/06/23 History Acetaminophen Tab [Tylenol] 650 mg PO Q6HR PRN tab 11/14/18 09/06/23 Rx Atorvastatin Calcium [Lipitor] 40 mg PO DAILY 08/31/22 09/06/23 History Allergies Allergy/AdvReac Type Severity Reaction Status Date / Time Sulfa (Sulfonamide Allergy Rash/Hives Verified 09/06/23 10:43 Antibiotics) Exam Vital Signs Temp Pulse Resp BP Pulse Ox 09/06/23 10:44 98.0 F 62 16 134/83 100 Intake and Output 09/05/23 09/06/23 09/06/23 22:59 06:59 14:59 Other: Weight 62.596 kg Height 5 feet 5 inches, weight 138 pounds, BMI 23.0. This is a well-developed well-nourished white female who is alert and oriented times 3 in no acute distress. HEENT: Within normal limits. NECK: Supple without mass or thyromegaly. CHEST AND LUNGS: Clear to auscultation. HEART: Regular rate with intermittent atopic beats, about 3 in a 30sec. period. BREASTS: Are without mass or discharge. Breasts are consistent with bilateral implants. AXILLARY EXAM: Negative for adenopathy. BACK: Negative for CVA tenderness. ABDOMEN: Soft, nontender, without palpable masses. PELVIC EXAM: Normal external genitalia with moderate atrophy. Cervix and vagina appear normal with mild to moderate atrophy. There is no unusual discharge. There is no evidence of prolapse. The uterus is midposition, nongravid size and nontender. There are no palpable adnexal masses or tenderness. RECTAL EXAM: Rectovaginal exam is negative for mass or tenderness and is negative for occult blood. EXTREMITIES: Nontender. IMPRESSION: 1. 63-year-old menopausal female with dyspareunia secondary to vaginal dryness which is related to the moderate atrophy noted on exam today. 2. Atopic heartbeats noted on exam. The patient states she has not yet done the Holter monitor as recommended by her clinical pharmacist. PLAN: 1. Pap smears have been discontinued. 2. Self breast awareness was discussed with the patient. We have also discussed symptoms associated with inflammatory breast cancer. 3. Screening mammogram will be done today. 4. She will have a trial of Premarin vaginal cream for menopausal dyspareunia and vaginal dryness. One sample tube was given to the patient. We have discussed possible side effects including possible vulvar irritation. She has no history of breast cancer or uterine cancer. She will insert 1 g into the vagina 2 times weekly. The electronic prescription will be sent to [facility] pharmacy in [place]. 5. PHQ-2 questionaire was given and she scores 0. This is a negative screen for depression. 6.Osteoporosis prevention was discussed. I have stressed the importance of adequate calcium, vitamin D and regular exercise. Recommended amounts of calcium and vitamin D were also discussed. She had a normal bone density test on 08/27/2021 and we will plan on repeating it after 5 years. 7. I have stressed the importance of following up with her clinical pharmacist and doing the recommended testing because of the irregular beats. She states she will this before going to [place] for the winter. 8. She was advised to return in one year for her annual well woman exam and as needed.
--- NOTE | 2023-09-06 16:32 | P.PN ---
Progress Note - Text Progress Note Date: 09/06/23 The patient called indicating that the Premarin vaginal cream is not covered by her insurance. She indicates that estradiol vaginal tablets 10 g is covered appear. The electronic prescription was sent to [facility] pharmacy and the Premarin vaginal cream was canceled. She will use the estradiol vaginal tablets 10 g into the vagina twice weekly.
--- NOTE | 2023-09-07 08:59 | MM ---
Reason for Exam: Hx of breast augmentation, asymptomatic. Last screening mammogram was performed 12 month(s) ago. Patient History: Menarche at age 11. First Full-Term at age 19. Postmenopausal. Patient has history of breast feeding. Progesterone for 1 year from age 57 until age 58. 2005, Benign Excisional Biopsy on the right side. 09/14/2018, Core Biopsy on the Left side. 1992, Bilateral Implants. 2014, Bilateral Implants. Mother had breast cancer, age 58. Risk Values: Idalmis 5 year model risk: 4.7%. NCI Lifetime model risk: 17.0%. Prior Study Comparison: 08/23/2017 Bilateral Diagnostic Mammogram, [facility]. 09/05/2018 Bilateral Diagnostic Mammogram, [facility]. 08/27/2019 Bilateral Diagnostic Mammogram, [facility]. 08/25/2020 Bilateral Screening Mammogram, [facility]. 08/27/2021 Bilateral Screening Mammogram, [facility]. 08/31/2022 Bilateral MG 3D screen mammo imp/cad., [facility]. Tissue Density: The breast tissue is heterogeneously dense. This may lower the sensitivity of mammography. Findings: Analyzed By CAD. There is no suspicious group of microcalcifications or new suspicious mass in either breast. Bilateral implants are intact. Overall Assessment: Benign, BI-RAD 2 Management: Screening Mammogram of both breasts in 1 year. . Patient should continue monthly self-breast exams. A clinical breast exam by your physician is recommended on an annual basis. This exam should not preclude additional follow-up of suspicious palpable abnormalities. Note on Idalmis scores and lifetime risk: 1. A Idalmis score greater than 3% is considered moderate risk. If this is the case, consider specialist referral to assess eligibility for a risk reducing agent. 2. If overall lifetime risk for the development of breast cancer is 20% or higher, the patient may qualify for future screening with alternating mammogram and breast MRI. Electronically signed and approved by: Franco Melton M.D. Radiologis
== END ==
LOC: WWCWWP 10:29
PROVIDERS: ATTEND Obstetrics & Gynecology
DX: Z01.419 Encounter for gynecological examination (general) (routine) without abnormal findings (principal); Z12.31 Encounter for screening mammogram for malignant neoplasm of breast; E78.5 Hyperlipidemia, unspecified; I10 Essential (primary) hypertension; N94.10 Unspecified dyspareunia; Z80.3 Family history of malignant neoplasm of breast; Z88.2 Allergy status to sulfonamides; Z78.0 Asymptomatic menopausal state; Z79.899 Other long term (current) drug therapy; Z79.82 Long term (current) use of aspirin
CPT/HCPCS: 77063; 77067

== ENCOUNTER → 2023-11-15 | Outpatient (CLI) | payer MEDICARE ==
[2023-11-15 15:26] LABS: ALT 21 U/L (8-44); AST 20 U/L (13-35); Chol/HDL Ratio 2.69 Ratio; LDL Cholesterol,Calculated 93.8 mg/dL (0.0-131.0)
== END | disposition home or self-care (01) ==
LOC: LABWHC1 10:11
PROVIDERS: ATTEND Internal Medicine Cardiovascular Disease
DX: E78.2 Mixed hyperlipidemia (principal)
CPT/HCPCS: 36415; 80061; 84450; 84460

== ENCOUNTER → 2024-09-11 | Outpatient (CLI) | payer MEDICARE ==
[2024-09-11 10:23] VITALS: PULSE 70; RESP 16; TEMP 97.9
[2024-09-11 10:43] VITALS: BP 167/83
--- NOTE | 2024-09-11 11:32 | P.HPOB ---
History of Present Illness H&P Date: 09/11/24 Chief Complaint: The patient is here for her routine gynecologic exam and ma mmogram. This is a 64-year-old G2, P2 with an LMP of 2007. The patient did try Vagifem for dyspareunia and genital atrophy. The patient states it was irritating and therefore she did not use it very long. She has been using Replens vaginal moisturizer instead. She is otherwise without gynecologic complaints. Review of Systems She has gained about 4 pounds over the past year. She denies respiratory or GI problems. Cardiac: Occasional palpitations. She did have 1 episode during the summer where she felt dizzy and lightheaded and she had to lay down. She brief ly felt a bit disoriented after that as well. She has not had any more of these episodes since then. She did discuss this with her PCP. 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 History of Any Multi-Drug Resistant Organisms: None Reported Past Surgical History: Breast Surgery, Tubal Ligation, Uterine Ablation Additional Past Surgical History / Comment(s): REPAIR LEFT BLOCKED URETER, bilateral breast implants 1990 and replaced with silicone implants in 2016. Endometrial ablation at age 2007. Colonoscopy 2022(next after 7yr). 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 No animals history related Smoking Status: Never smoker Past Alcohol Use History: Occasional (2 Drinks per week.) Past Drug Use History: None Reported Additional History: She has been since 2013 and this is her second marriage. 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 - Past Family History Mother Family Medical History: Cancer Additional Family Medical History / Comment(s): Breast cancer at age 58. Maternal aunt had uterine cancer. Father Family Medical History: AFIB, CVA/TIA, Diabetes Mellitus Sister(s) Family Medical History: Cancer Additional Family Medical History / Comment(s): Uterine cancer. Medications and Allergies Home Medications Medication Instructions Recorded Confirmed Type ramipriL [Altace] 10 mg PO DAILY 10/27/18 09/11/24 History Aspirin EC [Ecotrin] 650 mg PO DAILY PRN 11/12/18 09/11/24 History Acetaminophen Tab [Tylenol] 650 mg PO Q6HR PRN tab 11/14/18 09/11/24 Rx Atorvastatin Calcium [Lipitor] 40 mg PO DAILY 08/31/22 09/11/24 History Allergies Allergy/AdvReac Type Severity Reaction Status Date / Time Sulfa (Sulfonamide Allergy Rash/Hives Verified 09/11/24 10:17 Antibiotics) Exam Vital Signs Temp Pulse Resp BP Pulse Ox 09/11/24 10:43 167/83 09/11/24 10:18 97.9 F 70 16 178/98 98 Intake and Output 09/10/24 09/11/24 09/11/24 22:59 06:59 14:59 Other: Weight 64.41 kg Height 5 feet 5 inches, weight 142 pounds, BMI 23.6. This is a well-developed well-nourished white female who is alert and oriented times 3 in no acute distress. HEENT: Within normal limits. NECK: Supple without mass or thyromegaly. CHEST AND LUNGS: Clear to auscultation. HEART: Regular rate and rhythm with 2 premature beats noted over a 30s period. BREASTS: Are without mass or discharge. Breasts are consistent with bilateral implants. AXILLARY EXAM: Negative for adenopathy. BACK: Negative for CVA tenderness. ABDOMEN: Soft, nontender, without palpable masses. PELVIC EXAM: External genitalia reveals moderate atrophy. 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 Cervix and vagina appear normal with mild to moderate atrophy. There is no unusual discharge. There is no evidence of prolapse. The uterus is midposition, nongravid size and nontender. There are no palpable adnexal masses or tenderness. RECTAL EXAM: Rectovaginal exam is negative for mass or tenderness and is negative for occult blood. EXTREMITIES: Nontender. IMPRESSION: 1. 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 2. Elevated blood pressure. 3. Intermittent premature heartbeats, probable PVC or PACs. PLAN: 1. Pap smears have been discontinued. 2. Self breast awareness was discussed with the patient. We have also discussed symptoms associated with inflammatory breast cancer. 3. Screening mammogram was done today. 4. She has discontinued the Vagifem and would like to continue using a vaginal moisturizer as needed. 5. She was instructed to check her own blood pressure on a regular basis and follow-up with her PCP or sharepoint engineer for blood pressure elevations. She was also instructed to discuss the episode of dizziness and lightheadedness that she had over the summer. She states she has had a workup with the sharepoint engineer for palpitations including a heart monitor. She will be seeing her sharepoint engineer in the near future. 6. She was advised to return in one year for her annual well woman exam and as needed.
--- NOTE | 2024-09-12 11:25 | MM ---
Reason for Exam: Screening (asymptomatic). Last screening mammogram was performed 12 month(s) ago. Patient History: Menarche at age 11. First Full-Term at age 19. Postmenopausal. Patient has history of breast feeding. Progesterone for 1 year from age 57 until age 58. 2005, Benign Excisional Biopsy on the right side. 09/14/2018, Core Biopsy on the Left side. 1992, Bilateral Implants. 2014, Bilateral Implants. Mother had breast cancer, age 58. Risk Values: Idalmis 5 year model risk: 4.8%. NCI Lifetime model risk: 16.4%. Prior Study Comparison: 08/27/2021 Bilateral Screening Mammogram, [facility]. 08/31/2022 Bilateral MG 3D screen mammo imp/cad., [facility]. 09/06/2023 Bilateral MG screening mammo implant/CAD, [facility]. Tissue Density: The breasts are heterogeneously dense, which may obscure small masses. Findings: Analyzed By CAD. Bilateral retropectoral silicone implants are redemonstrated. Benign bilateral renal cysts calcifications. Tiny centrally located nodularity left CC view is unchanged. There is no suspicious group of microcalcifications or new suspicious mass in either breast. Overall Assessment: Benign, BI-RAD 2 Management: Screening Mammogram of both breasts in 1 year. See note below in regards to patient's increased 5 year Idalmis score. Patient should continue monthly self-breast exams. A clinical breast exam by your physician is recommended on an annual basis. This exam should not preclude additional follow-up of suspicious palpable abnormalities. Note on Idalmis scores and lifetime risk: 1. A Idalmis score greater than 3% is considered moderate risk. If this is the case, consider specialist referral to assess eligibility for a risk reducing agent. 2. If overall lifetime risk for the development of breast cancer is 20% or higher, the patient may qualify for future screening with alternating mammogram and breast MRI. [facility], , 09/12/2024 11:22 AM. Electronically signed and approved by: Kathleen Israel M.D. Radiologist
== END | disposition home or self-care (01) ==
LOC: RADMAMWWP 09:40
PROVIDERS: ATTEND Obstetrics & Gynecology
CPT/HCPCS: 77063; 77067

== ENCOUNTER → 2024-10-09 | Outpatient (CLI) | payer MEDICARE ==
[2024-10-09 15:42] LABS: ALT 18 U/L (8-44); AST 22 U/L (13-35); Chol/HDL Ratio 2.24 Ratio; LDL Cholesterol,Calculated 68.9 mg/dL (0.0-131.0); VLDL Calculation 16.22 mg/dL (5.00-40.00)
== END | disposition home or self-care (01) ==
LOC: LABWHC1 11:25
PROVIDERS: ATTEND Internal Medicine Cardiovascular Disease
DX: E78.2 Mixed hyperlipidemia (principal)
CPT/HCPCS: 36415; 80061; 84450; 84460